=== PATIENT | female | born 1980 | race Caucasian/White ===

== ENCOUNTER → 2018-08-30 06:31 | Outpatient (CLI) | payer OTHER, SELFPAY ==
--- NOTE | 2018-08-30 | DI.MRI.S_ITS ---
PROCEDURE: MR CERVICAL SPINE WO CON INDICATIONS: PAIN IN LEFT ARM TECHNIQUE: Noncontrast sagittal T1 spin echo and T2 fast spin echo, sagittal STIR, foraminal oblique sagittal T2 fast spin echo, and axial gradient echo or T2 fast spin echo through the cervical spine. COMPARISON: None. FINDINGS: Image quality: Excellent. Alignment and Curvature: There is loss of normal cervical lordosis. There is moderate kyphosis at C5-C7. Bone Marrow: Marrow demonstrates normal overall signal. There is mild reactive signal within the endplates adjacent to the C5-C6 and C6-C7 intervertebral discs. Spinal Cord: Visualized spinal cord has normal size and signal. No cerebellar tonsillar herniation. Paraspinous Soft Tissues: No paravertebral masses. Prevertebral soft tissues are normal in thickness. C2-C3: Normal appearance. C3-C4: Mild disc desiccation. Mild bilateral facet hypertrophy. No significant canal, nor foraminal stenosis. C4-C5: Mild disc desiccation. Mild bilateral facet hypertrophy. Minimal canal stenosis. Mild foraminal stenosis bilaterally. C5-C6: Mild disc desiccation. Moderate diffuse disc bulge with superimposed left paracentral disc protrusion. Mild bilateral facet hypertrophy. Severe canal stenosis. Mild left cord flattening. Mild foraminal stenosis bilaterally. C6-C7: Moderate discoid loss and desiccation. Mild diffuse disc bulge/osteophyte with superimposed left posterolateral protrusion. Mild bilateral facet and uncovertebral hypertrophy. Moderate canal stenosis. Mild left cord flattening. Severe left and mild right foraminal stenosis. C7-T1: Mild bilateral facet hypertrophy. Mild foraminal stenosis bilaterally. No canal stenosis. IMPRESSION: 1. Lower cervical kyphosis. 2. Disc, facet, and uncovertebral disease at C5-C6 and C6-C7, causing cord flattening at those levels. 3. Severe left C6-C7 foraminal stenosis is present. Dictated by: Mauro Parnell M.D. on 08/30/2018 at 9:52 Approved by: Mauro Parnell M.D. on 08/30/2018 at 9:59
== END ==
PROVIDERS: PCP Student in an Organized Health Care Education/Training Program; Visit Provider Family Medicine
DX: M79.602 Pain in left arm (principal); M40.292 Other kyphosis, cervical region; M50.822 Other cervical disc disorders at C5-C6 level; M48.02 Spinal stenosis, cervical region
CPT/HCPCS: 72141

== ENCOUNTER 2018-11-09 16:31 | Emergency (ER) | payer OTHER, SELFPAY ==
[2018-11-09 16:33] VITALS: BP 108/72; PULSE 67; RESP 20; TEMP 37.1; O2SAT 100; BMI 23.7
--- NOTE | 2018-11-09 16:43 | ED_ITS ---
HPI - Neck Pain/Injury <DELMER Ramirez - Last Filed: 11/09/18 22:29> General Chief Complaint: Neck Pain/Injury Stated Complaint: PAIN AFTER SURGERY Time Seen by Provider: 11/09/18 16:42 Source: patient Mode of arrival: ambulatory Limitations: no limitations History of Present Illness HPI Narrative: 37-year-old healthy female that is a former smoker here for complaint of pain into her neck area since last night. She reports she got history of chronic neck pain secondary to stenosis and radiculopathy. She recently had a surgery by Orthopedics at [facility] to repair this. This surgery was on the 18 of October. She reports that last night she was playing with her dog and she moved her head backwards as she thought that the dog was going to swat at her she felt pain into her neck at that point. She reports the pain is to bilateral aspects of the neck. She denies any midline pain. She states she has some tingling and numbness to her bilateral neck. She is able to ambulate into the emergency room. She denies any loss of bladder or bowel control. She denies any direct trauma to the neck. Related Data Previous Rx's Medication Instructions Recorded cyclobenzaprine 10 mg PO TID PRN #20 tab 11/09/18 hydrocodone-acetaminophen [[place]] 1 tab PO Q6H PRN #10 tab 11/09/18 Allergies Allergy/AdvReac Type Severity Reaction Status Date / Time No Known Drug Allergies Allergy Verified 11/09/18 17:27 Review of Systems <DELMER Ramirez - Last Filed: 11/09/18 22:29> Constitutional Denies chills, Denies fever(s), Denies lethargy and Denies weakness Eyes Denies change in vision, Denies eye discharge, Denies irritation and Denies loss of vision ENT Ears, Nose, Mouth, and Throat: Denies change in voice, Denies neck pain and Denies sore throat Cardiovascular Denies chest pain, Denies irregular heart rhythm, Denies lightheadedness, Denies palpitations, Denies dyspnea, Denies dyspnea on exertion and Denies orthopnea Respiratory Denies cough, Denies dyspnea, Denies dyspnea on exertion and Denies wheezing Gastrointestinal Gastrointestinal: Denies abdominal pain, Denies change in bowel habits, Denies diarrhea, Denies nausea and Denies vomiting Genitourinary Denies hematuria, Denies flank pain, Denies urinary incontinence and Denies urinary urgency Musculoskeletal Denies neck pain Comments: Pain into bilateral neck paraspinals Integumentary/Breasts Denies pruritus, Denies erythema, Denies rash and Denies wounds Neurologic Denies confusion, Denies loss of vision and Denies weakness Psychiatric Denies anxiety, Denies confusion, Denies depression, Denies homicidal ideation and Denies suicidal ideation Endocrine Denies palpitations Hematologic/Lymphatic Denies easy bruising Allergic/Immunologic Denies wheezing Exam <DELMER Ramirez - Last Filed: 11/09/18 22:29> Initial Vital Signs Initial Vital Signs: Vital Signs Temperature 98.7 F 11/09/18 16:33 Pulse Rate 67 11/09/18 16:33 Respiratory Rate 20 11/09/18 16:33 Blood Pressure 108/72 11/09/18 16:33 Pulse Oximetry 100 11/09/18 16:33 Const General: cooperative and well developed Nutritional Appearance: well nourished Orientation: alert, awake, oriented x3 and not confused HENVT Mouth: oral mucosae normal and mucous membranes abnormal Eyes Conjunctivae: conjunctivae normal Sclera: sclerae normal Pupils: PERRL EOM: EOM intact bilaterally Neck Other: Neck and posterior C-spine without any signs of trauma. No midline tenderness. Tenderness on palpation to bilateral paraspinals of the neck. Distal sensation is intact to all 4 extremities. Range of motion is intact all 4 extremities. Resp Effort & Inspection: normal respiratory effort, able to speak in complete sentences, no respiratory distress and no use of accessory muscles Auscultation: clear to auscultation bilaterally, no rales, no rhonchi and no wheezes Cardio Rate: regular rate Rhythm: regular rhythm Heart Sounds: no click, no gallops, no murmurs and no rubs Pulses: normal peripheral pulses Skin General: no rashes or lesions noted, No jaundice and No petechiae Neuro General: alert, oriented x3, gait normal and no focal motor deficits Speech: speech normal <Eloisa Bello DO - Last Filed: 11/09/18 23:54> Initial Vital Signs Initial Vital Signs: Vital Signs Temperature 98.7 F 11/09/18 16:33 Pulse Rate 67 11/09/18 16:33 Respiratory Rate 20 11/09/18 16:33 Blood Pressure 108/72 11/09/18 16:33 Pulse Oximetry 100 11/09/18 16:33 Course <DELMER Ramirez - Last Filed: 11/09/18 22:29> Orders Ordered: ED Orders 11/09/18 17:07 CT cervical spine wo con Stat Discontinued Medications Hydrocodone Bitart/Acetaminophen ([place] 5/325) 1 tab PO NOW ONE Stop: 11/09/18 19:09 Last Admin: 11/09/18 19:22 Dose: 1 tab Vital Signs - 8 hr 11/09/18 16:33 11/09/18 17:54 11/09/18 19:45 Temperature 98.7 F Pulse Rate 67 68 60 Respiratory Rate 20 16 18 Blood Pressure 108/72 113/73 Blood Pressure [Left Arm] 106/65 Pulse Oximetry 100 100 98 <Eloisa Bello DO - Last Filed: 11/09/18 23:54> Orders Ordered: ED Orders 11/09/18 17:07 CT cervical spine wo con Stat Discontinued Medications Hydrocodone Bitart/Acetaminophen ([place] 5/325) 1 tab PO NOW ONE Stop: 11/09/18 19:09 Last Admin: 11/09/18 19:22 Dose: 1 tab Vital Signs - 8 hr 11/09/18 16:33 11/09/18 17:54 11/09/18 19:45 Temperature 98.7 F Pulse Rate 67 68 60 Respiratory Rate 20 16 18 Blood Pressure 108/72 113/73 Blood Pressure [Left Arm] 106/65 Pulse Oximetry 100 100 98 MDM - Neck Pain/Injury <DELMER Ramirez - Last Filed: 11/09/18 22:29> Imaging Data CT C-spine: Radiologist's impression: [address] [address] [address] Scan Report Signed Patient: CARLTON JON#: [id number] : 1980Acct:[id number] Age/Sex: 37 / FDate of Service: 11/09/18 Loc: ED Accession Number: [id number] Procedure: CT cervical spine wo con Ordering Provider: Antoni Mancilla PROCEDURE: CT CERVICAL SPINE WO CON INDICATIONS: Acute Bilateral neck pain, non traumatic TECHNIQUE: Noncontrast 3 mm thick sections acquired from the skull base to the T4 level. Sagittal and coronal reformats were then constructed. For radiation dose reduction, the following was used: automated exposure control, adjustment of mA and/or kV according to patient size. COMPARISON: [facility], MR, MR CERVICAL SPINE WO MCK[place], 08/30/2018, 6:54. FINDINGS: Image quality: Excellent. Bones: No fractures or dislocations. There is loss of normal cervical lordosis. There is grade 1 retrolisthesis of C5 on C6. There is minimal anterolisthesis of C3 on C4 and C4 on C5. Postsurgical changes are present with discectomy and anterior fusion at C5-C7Mild central canal stenosis at C5-C6 and C6-C7. . There is severe narrowing of the lateral recess at C6-C7 bilaterally, left greater than right. Visualized superior ribs are intact. Soft tissues: Prevertebral soft tissues are normal in thickness. No paravertebral hematomas. No apical pneumothoraces. There is an 8 mm low density nodule in the right thyroid lobe. IMPRESSION: 1. Degenerative and post surgical changes in cervical spine with discectomy and posterior fusion at C5-C7. 2. Mild central canal stenosis at C5-6 and C6-C7. 3. Severe narrowing of the lateral recess at C6-C7 bilaterally. 4. An 8 mm low density nodule in the right thyroid lobe. Thyroid ultrasound followup suggested. Dictated by: Sam Woods M.D. on 11/09/2018 at 17:49 Approved by: Sam Woods M.D. on 11/09/2018 at 17:57 MDM Narrative Medical decision making narrative: CT scan of C-spine was obtained and was negative for any acute fractures or signs of trauma. CT scan did show that there was a nodule to the thyroid and will have a follow up with primary care provider. For further evaluation chest is ultrasound to ensure is stable. Discussed case with [facility]surgery as [facility] where surgery was completed and they request that they follow up with them next week. She is prescribed cyclobenzaprine to help with muscle strain [id number] ibuprofen as needed for any discomfort. Will treat for acute strain. Small amount of [place] is prescribed for breakthrough pain not be used in conjunction with a muscle relaxer. Rest area. For any worsening symptoms return emergency room for. Discharge Plan Departure Patient Disposition: Home Clinical Impression: Acute strain of neck muscle Discharge Date/Time: 11/09/18 19:45 Interventions: ED Discharge Assessment Last Done: 11/09/18 19:45 Instructions: Chronic Neck Pain Activity Restrictions/Additional Instructions: CT of the neck was obtained was negative for any signs of fractures or problems with recent surgery. CT does show incidental finding of a thyroid nodule. Follow up with primary care provider for supervision further studies such as ultrasound of the nodule to ensure is stable. Follow up with surgery as [facility] next week for re-evaluation. Will treat for neck strain at this time with muscle relaxer cyclobenzaprine along with [id number] ibuprofen use as directed. No driving while on muscle relaxers a can make you drowsy. Small amount of [place] is prescribed for breakthrough pain not covered by the ibuprofen do not use in conjunction with the muscle relaxant. Return emergency room for any worsening symptoms. Prescriptions: New cyclobenzaprine 10 mg tablet 10 mg PO TID PRN (Reason: muscle spasm) Qty: 20 RF: 0 hydrocodone-acetaminophen [[place]] 5-325 mg tablet 1 tab PO Q6H PRN (Reason: pain) Qty: 10 RF: 0 Referrals: Juan Antonio Corral [Primary Care Provider] - <Eloisa Bello DO - Last Filed: 11/09/18 23:54> Cosign ED Attending Cosignature Attestation: I was immediately available in the department for consultation. This documentation has been reviewed and I agree with assessment and plan. Supervised by Eloisa Blelo DO
--- NOTE | 2018-11-09 17:07 | DI.CT.S_ITS ---
PROCEDURE: CT CERVICAL SPINE WO CON INDICATIONS: Acute Bilateral neck pain, non traumatic TECHNIQUE: Noncontrast 3 mm thick sections acquired from the skull base to the T4 level. Sagittal and coronal reformats were then constructed. For radiation dose reduction, the following was used: automated exposure control, adjustment of mA and/or kV according to patient size. COMPARISON: [facility], MR, MR CERVICAL SPINE WO CON, 08/30/2018, 6:54. FINDINGS: Image quality: Excellent. Bones: No fractures or dislocations. There is loss of normal cervical lordosis. There is grade 1 retrolisthesis of C5 on C6. There is minimal anterolisthesis of C3 on C4 and C4 on C5. Postsurgical changes are present with discectomy and anterior fusion at C5-C7Mild central canal stenosis at C5-C6 and C6-C7. . There is severe narrowing of the lateral recess at C6-C7 bilaterally, left greater than right. Visualized superior ribs are intact. Soft tissues: Prevertebral soft tissues are normal in thickness. No paravertebral hematomas. No apical pneumothoraces. There is an 8 mm low density nodule in the right thyroid lobe. IMPRESSION: 1. Degenerative and post surgical changes in cervical spine with discectomy and posterior fusion at C5-C7. 2. Mild central canal stenosis at C5-6 and C6-C7. 3. Severe narrowing of the lateral recess at C6-C7 bilaterally. 4. An 8 mm low density nodule in the right thyroid lobe. Thyroid ultrasound followup suggested. Dictated by: Sam Woods M.D. on 11/09/2018 at 17:49 Approved by: Sam Woods M.D. on 11/09/2018 at 17:57
[2018-11-09 17:54] VITALS: BP 106/65; PULSE 68; RESP 16; O2SAT 100
[2018-11-09] MEDS: HYDROCODONE/ACET 5/325 TABLET 1 TAB PO (19:22)
[2018-11-09 19:45] VITALS: BP 113/73; PULSE 60; RESP 18; O2SAT 98
== END 2018-11-09 19:45 | disposition home or self-care (01) ==
PROVIDERS: Emergency Provider Nurse Practitioner Family; PCP Student in an Organized Health Care Education/Training Program
DX: S16.1XXA Strain of muscle, fascia and tendon at neck level, initial encounter (principal)
CPT/HCPCS: 72125; 99282; 99283

== ENCOUNTER → 2020-02-24 07:07 | Outpatient (CLI) | payer OTHER, SELFPAY ==
--- NOTE | 2020-02-24 | DI.US.S_ITS ---
LIMITED ULTRASOUND OF LEFT BREAST: 02/24/2020 CLINICAL: Lateral aspect 'rippling' per pt. No prior exams were available for comparison. Color flow and real-time ultrasound of the left breast 3-6 o'clock region were performed. Mathews scale images of the real-time examination were reviewed. No sonographic abnormality in the lower outer quadrant of the left breast. IMPRESSION: NEGATIVE There is no sonographic evidence of malignancy. Return to annual mammogram screening schedule is recommended. If symptoms persist or worsen, recommend mammogram in this patient who is less than 40 years old. Exam findings were conveyed to the patient by the Process Architect. This exam was interpreted at Station ID: [id number]. Electronically Signed By: Robert Dailey M.D. [facility] [place]/:02/24/2020 09:11:24 letter sent: Normal Exam Ultrasound BI-RADS: 1 Negative
--- NOTE | 2020-02-24 | DI.US.S_ITS ---
LIMITED ULTRASOUND OF RIGHT BREAST: 02/24/2020 CLINICAL: Lateral aspect 'rippling' with pain per pt. No prior exams were available for comparison. Real-time ultrasound of the right breast 6-10 o'clock region was performed. Mathews scale images of the real-time examination were reviewed. No sonographic abnormality in the right lower outer and upper outer breast. IMPRESSION: NEGATIVE There is no sonographic evidence of malignancy. Return to annual mammogram screening schedule is recommended. If symptoms persist or worsen, recommend mammogram in this patient who is less than 40 years old. Exam findings were conveyed to the patient by the Timber Treating Tank Operator. This exam was interpreted at Station ID: [id number]. Electronically Signed By: Robert Dailey M.D. [facility]/:02/24/2020 09:15:13 letter sent: Normal Exam Ultrasound BI-RADS: 1 Negative
== END ==
PROVIDERS: PCP Student in an Organized Health Care Education/Training Program
DX: N64.4 Mastodynia (principal)
CPT/HCPCS: 76642

== ENCOUNTER 2020-09-01 18:44 | Outpatient (CLI) | payer OTHER, SELFPAY ==
[2020-09-01 19:08] LABS: Appearance Urine UA CLEAR; Bilirubin Urine UA NEGATIVE (NEGATIVE); Color Urine UA YELLOW; Glucose Urine UA NEGATIVE (Negative); Ketones Urine UA NEGATIVE (NEGATIVE); Leukocyte Esterase Urine UA TRACE (NEGATIVE); Nitrite Urine UA NEGATIVE (Negative); Occult Blood Urine UA TRACE-INTACT (Negative); Protein Urine UA NEGATIVE (Negative); Specific Gravity Urine UA <=1.005 (1.000-1.035); Urobilinogen Urine UA 0.2 E.U./dL (0.2)
[2020-09-01 19:10] LABS: pH Urine UA 6.5 (4.5-8.0)
[2020-09-01 19:25] LABS: RBC Urine 0-1/HPF (0-5/HPF); Squamous Epithelial Cell Urine 1-5 /HPF (0-5/HPF); WBC Urine 1-5/HPF (0-5/HPF)
[2020-09-01 19:26] LABS: Bacteria Urine Moderate (10-30); Culture Indicated Urine Specimen Cultured
[2020-09-01 19:48] LABS: Add Manual Diff / Slide Review NO; Basophils Absolute Auto 0 /uL (0-100); Basophils Percent Auto 0.4 % (0-2); Eosinophils Absolute Auto 100 /uL (0-450); Eosinophils Percent Auto 1.5 % (2-4); Hematocrit 25.7 % (36-46); Hemoglobin 8.6 g/dL (12.0-16.0); Lymphocytes Absolute Auto 2100 /uL (1100-4500); Lymphocytes Percent Auto 29.6 % (25-40); Mean Corpuscular HGB Conc 33.4 % (30-36); Mean Corpuscular Hemoglobin 31.2 PG (26-34); Mean Corpuscular Volume 93.2 fL (80-100); Monocytes Absolute Auto 700 /uL (0-900); Monocytes Percent Auto 9.5 % (3-14); Neutrophils Absolute Auto 4300 /uL (1500-7000); Platelet Count 189 X10^3/uL (150-400); Red Blood Cell Count 2.76 X10^6/uL (4.0-5.2); Red Cell Distribution Width 13.6 % (11.6-14.8); White Blood Cell Count 7.2 X10^3/uL (4.5-11.0)
[2020-09-01 20:06] LABS: Aspartate Aminotransferase 21 IU/L (14-36); Blood Urea Nitrogen 8 mg/dL (7-17); Estimated Glomerular Filt Rate > 60.0 mL/min (>60); Uric Acid 3.3 mg/dL (2.5-6.2)
== END 2020-09-01 20:25 | disposition home or self-care (01) ==
LOC: OB 09-02 08:30
PROVIDERS: PCP Student in an Organized Health Care Education/Training Program; Referring Provider Obstetrics & Gynecology; Visit Provider Obstetrics & Gynecology
DX: O16.3 Unspecified maternal hypertension, third trimester (principal); O09.523 Supervision of elderly multigravida, third trimester; Z3A.34 34 weeks gestation of pregnancy
CPT/HCPCS: 36415; 59025; 59050; 81001; 84450; 84550; 85025; 87077; 87086; G0378; G0379

== ENCOUNTER 2020-09-03 13:19 | Outpatient (CLI) | payer OTHER, SELFPAY ==
--- NOTE | 2020-09-03 13:41 | PM.OBTRLD ---
Visit Information Visit Information Date of evaluation: 09/03/20 Primary OB Provider: Farida Leblanc On-call OB Provider: Estella Graves Reason for Evaluation: Yes non-stress test non-stress test reason: other (Sent from clinic by Dr. 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 Blood type, Rh negative Cervical disc disorder with radiculopathy Chronic neck pain Depression Dysplasia of cervix H/O being hospitalized H/O transfusion of whole blood (~2011) LGSIL on Pap smear of cervix Lump of right breast Morbid obesity Myopia PIH ( induced hypertension) hemorrhage (~10/2011) Pre-eclampsia (~2010) PTSD (post-traumatic stress disorder) Superficial keratitis (spontaneous vaginal delivery) (~11/08/11) (spontaneous vaginal delivery) (~03/27/13) Thrombosed external hemorrhoids Surgical History H/O inguinal hernia repair (~1989) H/O spinal fusion (~10/2017) History of tonsillectomy and adenoidectomy (~1989) Hx of breast implants, bilateral (~2013) Hx of LASIK (~2009) S/P LEEP (loop electrosurgical excision procedure) (~2009) S/P wisdom tooth extraction (~1996) Family History Mother Ovarian cyst Depression Hypertension Father Family estrangement Grandmother Ovarian cyst Vertigo Anemia Grandfather Lung cancer Cancer Grandmother Family estrangement Grandfather Family estrangement Sister Depression Social History marital status: number of children: 2 household members: spouse and children pets and animals: Yes (X 2 dogs) education level: college (BA in Business) occupational status: employed ([employer] X 18 years ) current occupational exposures/hazards: No shashi/hinduism: Evangelical special shashi needs: No Smoking Status: Former smoker Tobacco: How many years used: 10 quit status: quit date established (08/15/2011) second hand exposure: No alcohol intake: former (pre- : occasional use) substance use type: does not use Evaluation Evaluation Baseline heart rate: 120 Variability: Moderate (11-25) monitor accelerations: Present monitor decelerations: Absent Category of Tracing: Reactive Diagnosis, Plan/Disposition Final Diagnosis (1) 34 weeks gestation of : Status: Acute Plan/Disposition Plan: 39-year-old at 34 weeks gestation[address] care [address] Leblanc. NST reactive today. Follow-up in clinic as scheduled. OB Disposition: home
== END 2020-09-03 13:45 | disposition home or self-care (01) ==
LOC: LABOR 13:36 → OB 09-04 10:11
PROVIDERS: PCP Student in an Organized Health Care Education/Training Program; Referring Provider Obstetrics & Gynecology; Visit Provider Obstetrics & Gynecology
DX: O16.3 Unspecified maternal hypertension, third trimester (principal); O09.523 Supervision of elderly multigravida, third trimester; M54.89 Other dorsalgia; Z3A.34 34 weeks gestation of pregnancy
CPT/HCPCS: 59025; G0378; G0379

== ENCOUNTER 2020-09-08 16:18 | Outpatient (CLI) | payer OTHER, SELFPAY ==
--- NOTE | 2020-09-08 16:56 | P.TNLD_ITS ---
Visit Information Visit Information Date of evaluation: 09/08/20 Primary OB Provider: Farida Leblanc Reason for Evaluation: Yes non-stress test Comments/Additional reasons for admission: This patient is a 39-year-old para 2 at 35 weeks gestation with a history of preeclampsia and abruption in her prior pregnancies and heavily calcified placenta, presenting for NST as part of weekly testing. Patient reports feeling well with no complaints, had 8/8 BPP in the office. 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 Blood type, Rh negative Cervical disc disorder with radiculopathy Chronic neck pain Depression Dysplasia of cervix H/O being hospitalized H/O transfusion of whole blood (~2011) LGSIL on Pap smear of cervix Lump of right breast Morbid obesity Myopia PIH ( induced hypertension) hemorrhage (~10/2011) Pre-eclampsia (~2010) PTSD (post-traumatic stress disorder) Superficial keratitis (spontaneous vaginal delivery) (~11/08/11) (spontaneous vaginal delivery) (~03/27/13) Thrombosed external hemorrhoids Surgical History H/O inguinal hernia repair (~1989) H/O spinal fusion (~10/2017) History of tonsillectomy and adenoidectomy (~1989) Hx of breast implants, bilateral (~2013) Hx of LASIK (~2009) S/P LEEP (loop electrosurgical excision procedure) (~2009) S/P wisdom tooth extraction (~1996) Family History Mother Ovarian cyst Depression Hypertension Father Family estrangement Grandmother Ovarian cyst Vertigo Anemia Grandfather Lung cancer Cancer Grandmother Family estrangement Grandfather Family estrangement Sister Depression Social History marital status: number of children: 2 household members: spouse and children pets and animals: Yes (X 2 dogs) education level: college (BA in Business) occupational status: employed ([employer] X 18 years ) current occupational exposures/hazards: No shashi/latter day: Confucianism special shashi needs: No Smoking Status: Former smoker Tobacco: How many years used: 10 quit status: quit date established (08/15/2011) second hand exposure: No alcohol intake: former (pre- : occasional use) substance use type: does not use Evaluation Evaluation Baseline heart rate: 130 Variability: Moderate (11-25) monitor accelerations: Present monitor decelerations: Absent Category of Tracing: Reactive Diagnosis, Plan/Disposition Plan/Disposition Plan: Home with scheduled follow-up and precautions. OB Disposition: home
== END 2020-09-08 17:00 | disposition home or self-care (01) ==
LOC: LABOR 16:21 → OB 09-11 12:29
PROVIDERS: PCP Student in an Organized Health Care Education/Training Program; Referring Provider Obstetrics & Gynecology; Visit Provider Obstetrics & Gynecology
DX: O13.3 Gestational [pregnancy-induced] hypertension without significant proteinuria, third trimester (principal); O09.523 Supervision of elderly multigravida, third trimester; O43.893 Other placental disorders, third trimester; Z3A.35 35 weeks gestation of pregnancy
CPT/HCPCS: 59025; G0378; G0379

== ENCOUNTER 2020-09-15 13:56 | Outpatient (CLI) | payer OTHER, SELFPAY ==
--- NOTE | 2020-09-15 18:06 | PM.OBTRLD ---
Visit Information Visit Information Date of evaluation: 09/15/20 Primary OB Provider: Farida Leblanc Reason for Evaluation: Yes non-stress test Comments/Additional reasons for admission: This patient presents for planned NST due to a history of calcified placenta, with preeclampsia and placental abruption in her prior pregnancies. 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 Blood type, Rh negative Cervical disc disorder with radiculopathy Chronic neck pain Depression Dysplasia of cervix H/O being hospitalized H/O transfusion of whole blood (~2011) LGSIL on Pap smear of cervix Lump of right breast Morbid obesity Myopia PIH ( induced hypertension) hemorrhage (~10/2011) Pre-eclampsia (~2010) PTSD (post-traumatic stress disorder) Superficial keratitis (spontaneous vaginal delivery) (~11/08/11) (spontaneous vaginal delivery) (~03/27/13) Thrombosed external hemorrhoids Surgical History H/O inguinal hernia repair (~1989) H/O spinal fusion (~10/2017) History of tonsillectomy and adenoidectomy (~1989) Hx of breast implants, bilateral (~2013) Hx of LASIK (~2009) S/P LEEP (loop electrosurgical excision procedure) (~2009) S/P wisdom tooth extraction (~1996) Family History Mother Ovarian cyst Depression Hypertension Father Family estrangement Grandmother Ovarian cyst Vertigo Anemia Grandfather Lung cancer Cancer Grandmother Family estrangement Grandfather Family estrangement Sister Depression Social History marital status: number of children: 2 household members: spouse and children pets and animals: Yes (X 2 dogs) education level: college (BA in Business) occupational status: employed ([email or web address] X 18 years ) current occupational exposures/hazards: No shashi/mu-ism: Gnosticist special shashi needs: No Smoking Status: Former smoker Tobacco: How many years used: 10 quit status: quit date established (08/15/2011) second hand exposure: No alcohol intake: former (pre- : occasional use) substance use type: does not use Evaluation Evaluation Baseline heart rate: 135 Variability: Moderate (11-25) monitor accelerations: Present monitor decelerations: Absent Category of Tracing: Reactive Diagnosis, Plan/Disposition Plan/Disposition Plan: Home with routine precautions. OB Disposition: home
== END 2020-09-15 14:35 | disposition home or self-care (01) ==
LOC: LABOR 14:31 → OB 09-16 08:32
PROVIDERS: PCP Student in an Organized Health Care Education/Training Program; Referring Provider Obstetrics & Gynecology; Visit Provider Obstetrics & Gynecology
DX: O13.3 Gestational [pregnancy-induced] hypertension without significant proteinuria, third trimester (principal); O09.523 Supervision of elderly multigravida, third trimester; Z3A.36 36 weeks gestation of pregnancy
CPT/HCPCS: 59025; 87653; G0378; G0379

== ENCOUNTER → 2020-09-15 14:01 | Outpatient (CLI) | payer OTHER, SELFPAY ==
[2020-09-16 08:23] LABS: Strep Grp B PCR NEG for Grp B Strep
== END ==
PROVIDERS: PCP Student in an Organized Health Care Education/Training Program; Visit Provider Obstetrics & Gynecology
DX: Z34.83 Encounter for supervision of other normal pregnancy, third trimester (principal); Z3A.36 36 weeks gestation of pregnancy
CPT/HCPCS: 87653

== ENCOUNTER 2020-09-24 11:56 | Outpatient (CLI) | payer OTHER, SELFPAY ==
--- NOTE | 2020-09-24 12:35 | P.TNLD_ITS ---
Visit Information Visit Information Date of evaluation: 09/24/20 Primary OB Provider: Farida Leblanc Reason for Evaluation: Yes non-stress test Comments/Additional reasons for admission: Patient sent for scheduled NST for calcified placenta and hx preeclampsia, after 05/23 BPP in the office. 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 Blood type, Rh negative Cervical disc disorder with radiculopathy Chronic neck pain Depression Dysplasia of cervix H/O being hospitalized H/O transfusion of whole blood (~2011) LGSIL on Pap smear of cervix Lump of right breast Morbid obesity Myopia PIH ( induced hypertension) hemorrhage (~10/2011) Pre-eclampsia (~2010) PTSD (post-traumatic stress disorder) Superficial keratitis (spontaneous vaginal delivery) (~11/08/11) (spontaneous vaginal delivery) (~03/27/13) Thrombosed external hemorrhoids Surgical History H/O inguinal hernia repair (~1989) H/O spinal fusion (~10/2017) History of tonsillectomy and adenoidectomy (~1989) Hx of breast implants, bilateral (~2013) Hx of LASIK (~2009) S/P LEEP (loop electrosurgical excision procedure) (~2009) S/P wisdom tooth extraction (~1996) Family History Mother Ovarian cyst Depression Hypertension Father Family estrangement Grandmother Ovarian cyst Vertigo Anemia Grandfather Lung cancer Cancer Grandmother Family estrangement Grandfather Family estrangement Sister Depression Social History marital status: number of children: 2 household members: spouse and children pets and animals: Yes (X 2 dogs) education level: college (BA in Business) occupational status: employed ([employer] X 18 years ) current occupational exposures/hazards: No shashi/jehovah's witness: Taoist special shashi needs: No Smoking Status: Former smoker Tobacco: How many years used: 10 quit status: quit date established (08/15/2011) second hand exposure: No alcohol intake: former (pre- : occasional use) substance use type: does not use Review of Systems Constitutional Constitutional: Reports system reviewed and no additional complaints, except as documented Exam Const General: cooperative, healthy appearing, comfortable and well groomed Evaluation Evaluation Baseline heart rate: 130 Variability: Moderate (11-25) monitor accelerations: Present monitor decelerations: Absent Contraction Frequency (minutes): 5 Category of Tracing: Reactive Diagnosis, Plan/Disposition Plan/Disposition Plan: Home with follow up NST in 3-4 days. OB Disposition: home
== END 2020-09-24 12:40 | disposition home or self-care (01) ==
LOC: LABOR 12:23 → OB 09-28 15:40
PROVIDERS: PCP Student in an Organized Health Care Education/Training Program; Referring Provider Obstetrics & Gynecology; Visit Provider Obstetrics & Gynecology
DX: O13.3 Gestational [pregnancy-induced] hypertension without significant proteinuria, third trimester (principal); O09.523 Supervision of elderly multigravida, third trimester; Z3A.37 37 weeks gestation of pregnancy
CPT/HCPCS: 59025; G0378; G0379

== ENCOUNTER 2020-09-27 12:22 | Outpatient (CLI) | payer OTHER, SELFPAY ==
--- NOTE | 2020-09-27 12:51 | PM.OBTRLD ---
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 Blood type, Rh negative Cervical disc disorder with radiculopathy Chronic neck pain Depression Dysplasia of cervix H/O being hospitalized H/O transfusion of whole blood (~2011) LGSIL on Pap smear of cervix Lump of right breast Morbid obesity Myopia PIH ( induced hypertension) hemorrhage (~10/2011) Pre-eclampsia (~2010) PTSD (post-traumatic stress disorder) Superficial keratitis (spontaneous vaginal delivery) (~11/08/11) (spontaneous vaginal delivery) (~03/27/13) Thrombosed external hemorrhoids Surgical History H/O inguinal hernia repair (~1989) H/O spinal fusion (~10/2017) History of tonsillectomy and adenoidectomy (~1989) Hx of breast implants, bilateral (~2013) Hx of LASIK (~2009) S/P LEEP (loop electrosurgical excision procedure) (~2009) S/P wisdom tooth extraction (~1996) Family History Mother Ovarian cyst Depression Hypertension Father Family estrangement Grandmother Ovarian cyst Vertigo Anemia Grandfather Lung cancer Cancer Grandmother Family estrangement Grandfather Family estrangement Sister Depression Social History marital status: number of children: 2 household members: spouse and children pets and animals: Yes (X 2 dogs) education level: college (BA in Business) occupational status: employed ([employer] X 18 years ) current occupational exposures/hazards: No shashi/latter day: Jewish special shashi needs: No Smoking Status: Former smoker Tobacco: How many years used: 10 quit status: quit date established (08/15/2011) second hand exposure: No alcohol intake: former (pre- : occasional use) substance use type: does not use Evaluation Evaluation Baseline heart rate: 130 Variability: Moderate (11-25) monitor accelerations: Present monitor decelerations: Absent Category of Tracing: Reactive Diagnosis, Plan/Disposition Final Diagnosis (1) 38 weeks gestation of : Status: Acute Plan/Disposition Plan: 39 year old at 37+5 here for NST due to h/o pre-eclampsia and calcified placenta. NST reactive, BP normal. Follow up with Dr. Leblanc as scheduled. OB Disposition: home
== END 2020-09-27 12:55 | disposition home or self-care (01) ==
LOC: OB 09-28 15:41
PROVIDERS: PCP Student in an Organized Health Care Education/Training Program; Referring Provider Family Medicine; Visit Provider Family Medicine
DX: O13.3 Gestational [pregnancy-induced] hypertension without significant proteinuria, third trimester (principal); O09.523 Supervision of elderly multigravida, third trimester; Z3A.37 37 weeks gestation of pregnancy; Z87.59 Personal history of other complications of pregnancy, childbirth and the puerperium
CPT/HCPCS: 59025; G0378; G0379

== ENCOUNTER 2020-10-01 15:28 | Inpatient (IN) | payer OTHER, SELFPAY ==
[2020-10-01 15:38] VITALS: BP 117/68
[2020-10-01 16:10] LABS: Add Manual Diff / Slide Review NO; Basophils Absolute Auto 0 /uL (0-100); Basophils Percent Auto 0.3 % (0-2); Eosinophils Absolute Auto 0 /uL (0-450); Eosinophils Percent Auto 0.6 % (2-4); Hemoglobin 9.3 g/dL (12.0-16.0); Lymphocytes Absolute Auto 2200 /uL (1100-4500); Lymphocytes Percent Auto 26.8 % (25-40); Mean Corpuscular HGB Conc 33.3 % (30-36); Mean Corpuscular Hemoglobin 31.3 PG (26-34); Monocytes Absolute Auto 600 /uL (0-900); Monocytes Percent Auto 7.7 % (3-14); Neutrophils Absolute Auto 5200 /uL (1500-7000); Neutrophils Percent Auto 64.6 % (50-75); Platelet Count 173 X10^3/uL (150-400); Red Blood Cell Count 2.98 X10^6/uL (4.0-5.2); Red Cell Distribution Width 14.4 % (11.6-14.8); White Blood Cell Count 8.1 X10^3/uL (4.5-11.0)
[2020-10-01 16:23] LABS: Aspartate Aminotransferase 22 IU/L (14-36); BUN Creatinine Ratio 18.4 (6-22); Blood Urea Nitrogen 9 mg/dL (7-17); Estimated Glomerular Filt Rate > 60.0 mL/min (>60); Uric Acid 3.3 mg/dL (2.5-6.2)
[2020-10-01 16:41] LABS: Creatinine Urine Random 32.7 mg/dL; Protein (Total) Urine Random 13 mg/dL (0-12); Protein Creatinine Ratio Urine 0.39 GRAM/24H
--- NOTE | 2020-10-01 17:22 | P.HPOB_ITS ---
OB HPI Date/Time Date of admission: 10/01/20 Date Patient Seen: 10/01/20 Time Patient Seen: 17:22 History of Present Condition Chief complaint: NST : 3 Para: 2 Estimated Date of Delivery: 10/13/20 Estimated Gestational Age (weeks): 38 Narrative: Carine Clements is a 39 year old at 38+2 admitted with preecl ampsia without severe features. The patient has a history of preeclampsia without severe features in her 1st , and intrapartum placental abruption with subsequent rapid vaginal delivery in her 2nd . The patient reported today in clinic that she has had increased fatigue and malaise, hand and feet swelling, and occasional visual changes, though no headaches or sustained symptoms. Denies obstetrical complaints, with rare contractions and good movement. Biophysical profile in clinic was 8/8 with a normal MORRIS, but on presentation to the Center, she had an elevated urine protein/creatinine ratio of 0.39 and intermittently elevated blood pressures. The patient had a late transfer of care from the [facility] but has had an otherwise uncomplicated , though she has been in testing for heavily calcified placenta. Also of note, patient's 1st daughter was found to be partial trisomy 18,? Mosaic. Cell free DNA was normal in this , patient seen by [facility] and found to be low risk for aneuploidy in this . EFW is 7 lb 8 oz. patient has a history of forceps assisted vaginal delivery with both pregnancies, ?due to distress. She has no contributory medical, surgical, family, or social history, though she is of advanced maternal age. Indications Indication for induction OB: medical complication (Preeclampsia without severe features) History of Present care: good care Dating criteria: LMP confirmed by 1st trimester US Ultrasounds: normal 1st trimester US and normal mid trimester US Abnormal ultrasound findings: Heavily calcified placenta noted on transfer from [facility]. Obstetrical complications: preeclampsia Medical complications: none Preadmission Labs Blood type: 0 (-) negative -: Antibody screen: negative, GBS status: negative and RPR/VDLR: negative -: Chlamydia screen: not detected and Gonorrhea screen: not detected -: Rubella: immune and Varicella: immune Cell-free DNA: Within normal limits Urine: Within normal limits Narrative: Glucose Baseline =75; Gluc 5Ta=779; Gluc 5Kw=319; Gluc 4Sw=166 on 07/07/2020. Prior (ies) History: G1: 11/08/11, 37 weeks, 7#10, F, FAVD, retained placenta leading to PPH, preeclampsia without severe features G2: 03/27/13, 38weeks, 7#14, FAVD, F, placental abruption Evaluation Evaluation Baseline heart rate: 130 Variability: Moderate (11-25) monitor accelerations: Present monitor decelerations: Absent Uterine Contraction Intensity: Mild Category of Tracing: Reactive Status: Category l Cervical dilation (cm): 1 Cervical effacement (%): 50 station: -2 Laboratory results: Laboratory Tests 10/01/20 10/01/20 10/01/20 15:59 15:59 16:07 WBC 8.1 RBC 2.98 L Hgb 9.3 L Hct 28.0 L MCV 94.0 MCH 31.3 MCHC 33.3 RDW 14.4 Plt Count 173 Neut % (Auto) 64.6 Lymph % (Auto) 26.8 [place] % (Auto) 7.7 Eos % (Auto) 0.6 L Baso % (Auto) 0.3 Neut # (Auto) 5200 Lymph # (Auto) 2200 [place] # (Auto) 600 Eos # (Auto) 0 Baso # (Auto) 0 BUN 9 Creatinine 0.49 L Estimated GFR > 60.0 BUN/Creatinine Ratio 18.4 Uric Acid 3.3 AST 22 U Random Total Protein 13 H Urine Creatinine 32.7 Protein/Creatinin Ratio 0.39 PFSH Medical History AMA (advanced maternal age) multigravida 35+ Astigmatism 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 Blood type, Rh negative Cervical disc disorder with radiculopathy Chronic neck pain Depression Dysplasia of cervix H/O being hospitalized H/O transfusion of whole blood (~2011) LGSIL on Pap smear of cervix Lump of right breast Morbid obesity Myopia PIH ( induced hypertension) hemorrhage (~10/2011) Pre-eclampsia (~2010) PTSD (post-traumatic stress disorder) Superficial keratitis (spontaneous vaginal delivery) (~11/08/11) (spontaneous vaginal delivery) (~03/27/13) Thrombosed external hemorrhoids Surgical History H/O inguinal hernia repair (~1989) H/O spinal fusion (~10/2017) History of tonsillectomy and adenoidectomy (~1989) Hx of breast implants, bilateral (~2013) Hx of LASIK (~2009) S/P LEEP (loop electrosurgical excision procedure) (~2009) S/P wisdom tooth extraction (~1996) Family History Mother Ovarian cyst Depression Hypertension Father Family estrangement Grandmother Ovarian cyst Vertigo Anemia Grandfather Lung cancer Cancer Grandmother Family estrangement Grandfather Family estrangement Sister Depression Social History marital status: number of children: 2 household members: spouse and children pets and animals: Yes (X 2 dogs) education level: college (BA in Business) occupational status: employed ([employer] X 18 years ) current occupational exposures/hazards: No shashi/mormonism: Jew special shashi needs: No Smoking Status: Former smoker Tobacco: How many years used: 10 quit status: quit date established (08/15/2011) second hand exposure: No alcohol intake: former (pre- : occasional use) substance use type: does not use Meds Home Medications and Allergies Home Medications Medication Instructions Recorded Confirmed Type aspirin 81 mg chewable tablet 81 mg PO DAILY 08/18/20 08/20/20 History prenat.vits,cassy,cch-rrok-kkfaw 1 tab PO DAILY 08/18/20 08/20/20 History cephalexin 500 mg capsule 500 mg PO BID #14 cap 09/03/20 09/03/20 Rx ferrous sulfate 325 mg (65 mg 325 mg PO DAILY #30 tab 09/15/20 09/15/20 Rx iron) tablet Allergies Allergy/AdvReac Type Severity Reaction Status Date / Time No Known Drug Allergies Allergy Verified 08/20/20 15:11 Review of Systems Constitutional Constitutional: Reports system reviewed and no additional complaints, except as documented Cardiovascular Cardiovascular: Reports system reviewed and no additional complaints, except as documented Respiratory Respiratory: Reports system reviewed and no additional complaints, except as documented Gastrointestinal Gastrointestinal: Reports system reviewed and no additional complaints, except as documented Genitourinary Genitourinary: Reports system reviewed and no additional complaints, except as documented Musculoskeletal Musculoskeletal: Reports as per HPI Neurologic Neurologic: Reports as per HPI Exam Vital Signs (past 8 hours): 119-152/78-92 Narrative Exam Narrative: Resting in bed, fatigued-appearing Const General: cooperative and comfortable Resp Effort & Inspection: normal respiratory effort Auscultation: clear to auscultation bilaterally Cardio Rate: regular rate Rhythm: regular rhythm GI Palpation: soft and No tender Extrem Other: 2+ edema in bilateral lower extremities, trace and upper extremities. 3+ patellar reflexes bilaterally. Objective Labs Result Diagrams: 10/01/20 15:59 10/01/20 15:59 Labs: Laboratory Results - last 24 hr 10/01/20 10/01/20 10/01/20 15:59 15:59 16:07 WBC 8.1 RBC 2.98 L Hgb 9.3 L Hct 28.0 L MCV 94.0 MCH 31.3 MCHC 33.3 RDW 14.4 Plt Count 173 Neut % (Auto) 64.6 Lymph % (Auto) 26.8 [place] % (Auto) 7.7 Eos % (Auto) 0.6 L Baso % (Auto) 0.3 Neut # (Auto) 5200 Lymph # (Auto) 2200 [place] # (Auto) 600 Eos # (Auto) 0 Baso # (Auto) 0 BUN 9 Creatinine 0.49 L Estimated GFR > 60.0 BUN/Creatinine Ratio 18.4 Uric Acid 3.3 AST 22 U Random Total Protein 13 H Urine Creatinine 32.7 Protein/Creatinin Ratio 0.39 Assessment and Plan Assessment and Plan Assessment and Plan narrative: This patient is a 39-year-old para 2 with a history of preeclampsia and placental abruption in prior pregnancies, now admitted at 38 weeks 2 days with preeclampsia without severe features. We discussed that at this point, the recommendation would be for induction of labor. The patient require cervical ripening and will be admitted overnight for Cervidil, anticipating Pitocin in the morning. Discussed risks and benefits, discussed risks of placental calcification leading to intolerance of la bor, discussed risk of emergency . Patient and partner vocalized understanding and agree with the plan for induction. - cEFM, toco - cervidil overnight - q1 hr BP checks, notify MD if over 160/110 - Ambulation ad tita
[2020-10-01 18:54] LABS: COVID19 -Nasal RAPID Negative (Negative)
[2020-10-01] MEDS: ZOLPIDEM 5 MG TABLET PO (21:10)
[2020-10-01] MEDS: DINOPROSTONE VAG (CERVIDIL) 10 MG VAG (21:10)
[2020-10-02] MEDS: LACTATED RINGERS 1,000 ML 100 ML IV ×2 (01:20→14:04)
--- NOTE | 2020-10-02 07:48 | PM.OBPNLAB ---
Date/Time Date Patient Seen: 10/02/20 Time Patient Seen: 07:30 Pain Control Pain control: tolerating well Pelvic Exam Dilation (cm): 3 Effacement (%): 80 station: -3 Amniotic membrane status: Intact Comments: 108-125/59-72 Contractions Contraction pattern: Irregular Contraction intensity: Mild Status status: Category l Heart Rate Baseline: 130 Monitor Accelerations: Present Monitor Decelerations: Absent Monitor Variability: Moderate Assessment and Plan Assessment: induction ongoing Plan: continuous present management Comments: Patient made change to favorable cervix with cervidil overnight, for picotin.
[2020-10-02] MEDS: OXYTOCIN PREMIX 30 UNIT/500 ML PLAST..BAG IV (08:09)
--- NOTE | 2020-10-02 13:57 | PM.OBPNLAB ---
Date/Time Date Patient Seen: 10/02/20 Time Patient Seen: 13:57 Pain Control Pain control: tolerating well Pelvic Exam Dilation (cm): 4 Effacement (%): 80 station: -1 Amniotic membrane status: Ruptured (AROM, clear) Contractions Pitocin rate (mU/min): 17 Contraction frequency (min): 3 Contraction pattern: Irregular Contraction intensity: Moderate Status status: Category l Heart Rate Baseline: 135 Monitor Accelerations: Present Monitor Decelerations: Absent Monitor Variability: Moderate Comments: VSS Assessment and Plan Assessment: induction ongoing Plan: continuous present management
--- NOTE | 2020-10-02 15:59 | PM.OBPNLAB ---
Date/Time Date Patient Seen: 10/02/20 Time Patient Seen: 16:00 Pelvic Exam Dilation (cm): 9 Effacement (%): 100 station: 0 (+bloody show) Amniotic membrane status: Ruptured (AROM, clear) Comments: 9.5cm, small anterior lip Contractions Pitocin rate (mU/min): 17 Contraction frequency (min): 3 Contraction pattern: Irregular Contraction intensity: Moderate Status status: Category ll Heart Rate Baseline: 135 Monitor Accelerations: Absent Monitor Decelerations: Variable Monitor Variability: Moderate Assessment and Plan Assessment: induction ongoing Plan: continuous present management Comments: Patient fully dilated, receiving epidural bolus per patient request then to begin 2nd stage. Anticipate vaginal delivery.
[2020-10-02] MEDS: miSOPROStoL 200 MCG TABLET 1000 MCG PR (16:25)
[2020-10-02] MEDS: CARBOPROST 250 MCG/ML AMPUL IM (17:15)
[2020-10-02] MEDS: OXYTOCIN PREMIX 30 UNIT/500 ML PLAST..BAG 125 UNIT IV (17:20)
--- NOTE | 2020-10-02 17:25 | P.PCNOB_ITS ---
Labor & Delivery Delivery date: 10/02/20 Intrapartal events: Mild Preeclampsia, Acceleration and Deceleration Cervical ripening method: per Cervidil protocol Induction method: per pitocin protocol Delivery augmentation: rupture of membranes Delivery monitor: external FHT and external uterine Route of delivery: L&D Laceration Description: None Delivery repair: vicryl Estimated blood loss (mL): 600 Anesthesia Type: Epidural Complications: hemorrhage Narrative: This patient is now a P3 who transferred care in the 3rd trimester from the [facility], and was found to have a heavily calcified placenta. She was placed in monitoring, and developed preeclampsia without severe features at 38 weeks gestation. She was induced with cervidil and pitocin, and progressed rapidly to fully dilated after AROM. After a short 2nd stage, she was delivered of a healthy baby girl via . The shoulders delivered with ease, there was no nuchal cord, and there were no perinal, labial, or cervical lacerations. The placenta delivered spontaneously and intact shortly thereafter, with no signs of abruption. Immediately after delivery, lochia was minimal. 1 hour after delivery, a hemorrhage occurred. Over the next several hours, a slow but persistent blood loss of 100-300 cc an hour recurred in small gushes or collections of clot. Patient was stable hemodynamically throughout, and bedside ultrasound by an laboratory development technician showed no sign of retained placenta.. The patient was administered a total of 60mU of pitocin, 1000mg rectal cytotec, 1 dose IM Hemabate, 0.2 mg IM Methergine, and finally 1 g TXA. After emptying the bladder and administration of the TXA, the bleeding normalized. Repeat CBC was stable, and the patient tolerated the above well. After an extended period of normal bleeding and overall stability, the patient was allowed to eat. [place] Baby 1: gender: Female Presentation: vertex Position: Left Occiput Anterior Placenta delivery description: Spontaneous Cord Vessel Description: 3 Vessels score (1 min): 8 score (5 min): 9 Narrative: Sheryl Plan for aftercare: Routine care with close monitoring of vital signs and vaginal bleeding. Repeat labs in a.m..
[2020-10-02] MEDS: METHYLERGONOVINE 0.2 MG/ML VIAL IM (17:35)
--- NOTE | 2020-10-02 17:43 | DI.US.S_ITS ---
PROCEDURE: US OB LIMITED INDICATIONS: assess for retained products of conception TECHNIQUE: Real-time scanning was performed of the fetus, with image documentation. Endovaginal scanning: Not performed COMPARISON: None. FINDINGS: Limited ultrasound examination of uterus in shows no discrete retained products. Bulky uterus is noted. IMPRESSION: No gross retained product is seen on this limited post delivery study. Dictated by: Brian Abbott M.D. on 10/02/2020 at 18:22 Approved by: Brian Abbott M.D. on 10/02/2020 at 18:24
[2020-10-02] MEDS: CEFAZOLIN 2 GM/100 ML FROZ.PIGGY IV (17:48)
[2020-10-02] MEDS: ONDANSETRON 4 MG/2 ML INJ IV (18:09)
[2020-10-02] MEDS: ACETAMINOPHEN 325 MG TABLET 650 MG PO (18:10)
[2020-10-02] MEDS: DIPHENOXYLATE/ATROP 2.5/0.025 TABLET 1 EACH PO (18:10)
[2020-10-02] MEDS: MORPHINE 4 MG/ML INJ IV (18:54)
[2020-10-02] MEDS: TRANEXAMIC ACID 1,000 MG in SODIUM CHLORIDE 0.9% 100 ML 400 ML IV (19:17)
[2020-10-02 19:25] LABS: Add Manual Diff / Slide Review NO; Basophils Absolute Auto 100 /uL (0-100); Basophils Percent Auto 0.4 % (0-2); Eosinophils Absolute Auto 0 /uL (0-450); Eosinophils Percent Auto 0.1 % (2-4); Hemoglobin 10.1 g/dL (12.0-16.0); Lymphocytes Absolute Auto 1800 /uL (1100-4500); Lymphocytes Percent Auto 13.3 % (25-40); Mean Corpuscular HGB Conc 32.5 % (30-36); Mean Corpuscular Hemoglobin 30.5 PG (26-34); Mean Corpuscular Volume 94.1 fL (80-100); Monocytes Absolute Auto 800 /uL (0-900); Monocytes Percent Auto 5.7 % (3-14); Neutrophils Absolute Auto 11000 /uL (1500-7000); Neutrophils Percent Auto 80.5 % (50-75); Platelet Count 163 X10^3/uL (150-400); Red Blood Cell Count 3.29 X10^6/uL (4.0-5.2); Red Cell Distribution Width 14.4 % (11.6-14.8); White Blood Cell Count 13.7 X10^3/uL (4.5-11.0)
[2020-10-02 19:48] LABS: Fibrinogen 269 mg/dL (211-428)
[2020-10-02 19:58] LABS: Prothrombin Time 10.9 SECONDS (10.1-12.7)
[2020-10-02 20:00] LABS: PTT Partial Thromboplastin Tim 27 SECONDS (26.4-36.2)
[2020-10-02] MEDS: DERMOPLAST SPRAY 20% 60 ML 1 SPRAY TOP (21:20)
[2020-10-03] MEDS: ACETAMINOPHEN 325 MG TABLET 650 MG PO ×2 (03:49→10:54)
[2020-10-03 07:23] LABS: Add Manual Diff / Slide Review NO; Basophils Absolute Auto 100 /uL (0-100); Basophils Percent Auto 0.4 % (0-2); Eosinophils Absolute Auto 100 /uL (0-450); Eosinophils Percent Auto 0.9 % (2-4); Hematocrit 26.8 % (36-46); Hemoglobin 8.9 g/dL (12.0-16.0); Lymphocytes Absolute Auto 2600 /uL (1100-4500); Mean Corpuscular HGB Conc 33.2 % (30-36); Mean Corpuscular Hemoglobin 30.9 PG (26-34); Mean Corpuscular Volume 93.2 fL (80-100); Monocytes Absolute Auto 900 /uL (0-900); Monocytes Percent Auto 6.7 % (3-14); Neutrophils Absolute Auto 9200 /uL (1500-7000); Platelet Count 159 X10^3/uL (150-400); Red Blood Cell Count 2.88 X10^6/uL (4.0-5.2); Red Cell Distribution Width 14.8 % (11.6-14.8); White Blood Cell Count 12.8 X10^3/uL (4.5-11.0)
[2020-10-03 07:43] LABS: Aspartate Aminotransferase 29 IU/L (14-36); BUN Creatinine Ratio 17.4 (6-22); Blood Urea Nitrogen 8 mg/dL (7-17); Estimated Glomerular Filt Rate > 60.0 mL/min (>60); Uric Acid 2.8 mg/dL (2.5-6.2)
--- NOTE | 2020-10-03 10:26 | PM.OBDS.1 ---
Discharge Providers Provider Date of admission: 10/01/20 15:28 Discharge Date: 10/03/20 Primary care physician: Juan Antonio Corral Consults: 10/03/20 16:37 Consult to Testboard Operator Routine Comment: Discharge provider: Farida Leblanc MD Summary Hospital Course Date Patient Seen: 10/03/20 Time Patient Seen: 10:28 Procedures: Hospital Course: This patient was admitted for induction of labor for preeclampsia without severe features at 38 weeks gestation. She was induced with cervidil and pitocin, and underwent an uncomplicated vaginal delivery with no perineal laceration. The placenta delivered spontaneously and intact, and the immediate period was uncomplicated. 1 hour after delivery, the patient began a hemorrhage that occurred in a series of small gushes and clots over 2 hours, with minimal bleeding in between. She received pitocin, cytotec, hemabate, methergine, and TXA, and had multiple exams and an ultrasound showing no retained products of conception. Her bleeding resolved, and remained mild over the rest of her stay with no signs or symptoms of PIH or infection. She was discharged late on PPD#1 with planned f/u in 3 days in clinic. Peripartum Data Infant Delivery Method: Natural Vaginal Laceration Description: None complications: other ( hemorrhage) 1: Gender: Female Disposition of : home Status at Discharge Cognitive/behavioral status at discharge: oriented Functional status at discharge: independent ambulation Overall status at discharge: patient is progressing back to baseline Time Spent with Patient Time attestation: Total time spent providing and/or coordinating discharge services: Time spent: Greater than 30 minutes Objective Labs Result Diagrams: 10/03/20 07:15 10/03/20 07:15 Labs: Laboratory Results - last 24 hr 10/02/20 10/02/20 10/02/20 19:18 19:18 19:18 WBC 13.7 H D RBC 3.29 L Hgb 10.1 L Hct 31.0 L MCV 94.1 MCH 30.5 MCHC 32.5 RDW 14.4 Plt Count 163 Neut % (Auto) 80.5 H Lymph % (Auto) 13.3 L [place] % (Auto) 5.7 Eos % (Auto) 0.1 L Baso % (Auto) 0.4 Neut # (Auto) 79312 H Lymph # (Auto) 1800 [place] # (Auto) 800 Eos # (Auto) 0 Baso # (Auto) 100 PT 10.9 INR 1.0 APTT 27 Fibrinogen 269 BUN Creatinine Estimated GFR BUN/Creatinine Ratio Uric Acid AST 10/03/20 10/03/20 07:15 07:15 WBC 12.8 H RBC 2.88 L Hgb 8.9 L Hct 26.8 L MCV 93.2 MCH 30.9 MCHC 33.2 RDW 14.8 Plt Count 159 Neut % (Auto) 72.0 Lymph % (Auto) 20.0 L [place] % (Auto) 6.7 Eos % (Auto) 0.9 L Baso % (Auto) 0.4 Neut # (Auto) 9200 H Lymph # (Auto) 2600 [place] # (Auto) 900 Eos # (Auto) 100 Baso # (Auto) 100 PT INR APTT Fibrinogen BUN 8 Creatinine 0.46 L Estimated GFR > 60.0 BUN/Creatinine Ratio 17.4 Uric Acid 2.8 AST 29 Exam Vital Signs (past 8 hours): 108-128/66-77, HR 70s Narrative Exam Narrative: Resting in bed with baby, well appearing. Ambulating, voiding, tolerating PO, passing flatus, mild lochia, no other complaints. Const General: cooperative, healthy appearing and comfortable Resp Effort & Inspection: normal respiratory effort Auscultation: clear to auscultation bilaterally Cardio Rate: regular rate Rhythm: regular rhythm GI Palpation: soft and No tender Extrem Other: no UE edema, facial edema resolved, 2+ LE edema Discharge Plan Discharge Plan Patient Disposition: Home Discharge orders & Medications Prescriptions: Continued prenat.vits,cassy,pid-[id number] Tablet 1 tab PO DAILY RF: 0 ferrous sulfate [Feosol] 325 mg (65 mg iron) tablet 325 mg PO DAILY Qty: 30 RF: 3 Discontinued aspirin 81 mg tablet,chewable 81 mg PO DAILY RF: 0 Follow up/Referrals: Farida Leblanc MD [Physician] - 3-5 Days (blood pressure check) Juan Antonio Corral [Primary Care Provider] - Diet/Activity/Treatments Diet: Regular Activity: Nothing in the vagina for 6 weeks. Avoid heavy lifting for 6 weeks. If you have increasing bleeding, fevers, chills, headaches, visual changes, chest pain, or any other symptoms, call or come to the ED. Skin/Wound/Dressing Care Report to your healthcare provider any signs of infection, such as:: chills, fever, night sweats, increased pain, unusual drainage and unusual redness Visit Report/Discharge Packet Instructions: Pre-eclampsia, DI for Labor and Delivery, Vaginal Stand Alone Forms: Discharge: Care Discharge Data Primary Care Provider: Juan Antonio Corral
[2020-10-03] MEDS: IBUPROFEN 600 MG TABLET PO (10:54)
[2020-10-03] MEDS: LANOLIN OINT 7 GM 1 APPLIC TOP (10:54)
[2020-10-03 14:26] VITALS: BP 117/68; PULSE 72; RESP 18; TEMP 37.1
[2020-10-03] MEDS: RHO(D) IMMUNE GLOBULIN 1,500 UNIT SYRINGE 1500 UNIT IM (15:45)
== END 2020-10-03 16:00 | disposition home or self-care (01) | DRG 807 ==
PROVIDERS: Admitting Provider Obstetrics & Gynecology; PCP Student in an Organized Health Care Education/Training Program; Referring Provider Obstetrics & Gynecology; Visit Provider Obstetrics & Gynecology
DX: O14.04 Mild to moderate pre-eclampsia, complicating childbirth (principal); Z37.0 Single live birth; O60.14X0 Preterm labor third trimester with preterm delivery third trimester, not applicable or unspecified; O72.2 Delayed and secondary postpartum hemorrhage; Z3A.38 38 weeks gestation of pregnancy; Z01.812 Encounter for preprocedural laboratory examination; Z20.828 Contact with and (suspected) exposure to other viral communicable diseases
CPT/HCPCS: 01967; 36415; 59050; 59200; 59410; 76815; 82570; 84156; 84450; 84550; 85025; 85384; 85461; 85610; 85730; 86850; 86870; 86900; 86901; 87635; G0379; J0690; J2210; J2270; J2405; J2590; J2790; S0191

== ENCOUNTER 2021-03-17 08:15 | Outpatient (RCR) | payer OTHER, SELFPAY ==
--- NOTE | 2021-01-06 10:52 | PT.OIE ---
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 Blood type, Rh negative Cervical disc disorder with radiculopathy Chronic neck pain Depression Dysplasia of cervix H/O being hospitalized H/O transfusion of whole blood (~2011) LGSIL on Pap smear of cervix Lump of right breast Morbid obesity Myopia PIH ( induced hypertension) hemorrhage (~10/2011) Pre-eclampsia (~2010) PTSD (post-traumatic stress disorder) Superficial keratitis (spontaneous vaginal delivery) (~11/08/11) (spontaneous vaginal delivery) (~03/27/13) Thrombosed external hemorrhoids Past Surgical History (Last Updated 11/12/20 @ 21:14 by Alana Desouza DO) H/O inguinal hernia repair (~1989) H/O spinal fusion (~10/2017) History of tonsillectomy and adenoidectomy (~1989) Hx of breast implants, bilateral (~2013) Hx of LASIK (~2009) S/P LEEP (loop electrosurgical excision procedure) (~2009) S/P wisdom tooth extraction (~1996) Visit Care Team Role Provider Type Juan Antonio Corral Primary Care Provider Non-Staff Specialty: Medical Address: [address] [place] [address], [facility] Email: Attending Provider Referring Provider Specialty: Address: Phone: Fax: Email: Physical Therapy Initial Evaluation PT-OP-A Visit Information Start: 01/06/21 08:12 Freq: Status: Active Protocol: Document 01/06/21 09:00 AMB (Rec: 01/09/21 10:52 AMB [email or web address]) Out-Patient Physical Therapy Visit Information Visit Information Visit Type Initial Evaluation Visit Start Time 09:00 Visit Stop Time 09:45 Total Visit Minutes 45 Visit Number 1 PT-OP-B Current Condition Start: 01/06/21 08:12 Freq: Status: Active Protocol: Document 01/06/21 09:01 AMB (Rec: 01/06/21 09:13 AMB [id number]) Current Condition History of Current Condition Onset Date September 2020 Current Complaints Stress/urge urinary incontinence s/p vaginal delivery History of Current Condition with most recent 3 months ago, vaginal delivery no tearing with this delivery, no instrumet assistance, denies prolonged pushing. Urgency with leaking, ROBERTH with exercise. Laughing and coughing, squatting increases leaking, a little bit of incontinence of gas. 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 Treatment Goals Patient/Caregiver Goals Return to exercise without urinary leakage, decrease urgency. Prior Functional Status Baseline Function- ADL's Independent Baseline Function- Mobility Independent Baseline Function- Recreation/Hobbies long distance running without leaking Current Functional Impairments (Reported) Functional Limitations- Other leaking with exercise, urge, cough laugh Personal Factors Other Personal Factors That May Effect ACDF C5-7- denies previous Therapy/Recovery urinary sx before/after surgery, hx hernia, depression /anxiety PT-OP-C Subjective Start: 01/06/21 08:12 Freq: Status: Active Protocol: Document 01/06/21 09:00 AMB (Rec: 01/09/21 10:52 AMB [email or web address]) Patient Questionnaires Pelvic Pain and Urgency/Frequency Patient Symptom Scale Pelvic Pain Score 7 PT-OP-I Pelvic Floor Start: 01/06/21 08:12 Freq: Status: Active Protocol: Document 01/06/21 09:00 AMB (Rec: 01/09/21 10:52 AMB [email or web address]) Pelvic Floor Assessment Urine Pelvic Floor Surgery No Urinary Symptoms Urge Sensation Leakage Size Medium Leakage Cause Cough,Exercise,Lifting,Sneeze, Urge Voiding Frequency 6/day Nocturia 1 Urine Pad Type Panty Liner Pelvic Clock Pelvic Clock Other no tenderness/tightness, mild scar tissue from previous tearing at perineum Perineal Descent Resting Absent Bearing Absent Contraction Ability Voluntary Contraction Weak Voluntary Relaxation Weak Manual Muscle Testing Left 1 Manual Muscle Testing Right 1 Manual Muscle Testing Anterior 1 Manual Muscle Testing Posterior 2 Comments Pelvic Floor Comments Poor pelvic floor strength with tendency to over use adductors/abdominals, poor endurance PT-OP-T Assessment and Plan Start: 01/06/21 08:12 Freq: Status: Active Protocol: Document 01/06/21 09:00 AMB (Rec: 01/09/21 10:52 AMB [email or web address]) Physical Therapy Assessment Rehab Potential Rehabilitation Potential Good Evaluation Complexity Number of Personal Factors/Comorbidities 1-2 Number of Body Systems Impaired 1-2 Clinical Presentation at Evaluation Stable Impairments Impairments Strength Goals Two Impairment Pelvic floor strength Short Term Goal (STG) Carine will be able to contract her pelvic floor for 10 seconds to show improved strength. STG Duration 4 weeks Custodial Goal (LTG) Carine will be able to contract her pelvic floor while lifting 20 pounds from the floor to waist height without leaking. LTG Duration 8 weeks One Impairment Continence Short Term Goal (STG) Carine will use urge suppression techniques to be able to avoid urge incontinence. STG Duration 4 weeks Custodial Goal (LTG) Carine will be able to laugh/ cough without leaking urine. LTG Duration 8 weeks Assessment Summary Assessment Carine attends physical therapy after her third vaginal delivery with stress and urge urinary incontinence and significantly weak pelvic floor musculature. 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 Physical Therapy Plan Frequency and Duration Frequency of Treatment 1x/Week Duration of Treatment 8 weeks Plan of Care Start Date 01/06/21 Plan of Care End Date 03/03/21 Therapeutic Interventions Therapeutic Interventions Home Exercise Program,Manual Therapy,Neuromuscular Re- education,Self-Care/Home Management,Therapeutic Activities,Therapeutic Exercises Modalities Biofeedback,Cold Pack/Ice Massage,Electric Stimulation, Hot Packs Next Visit Focus/Plan Next Note Type Treatment Note Next Visit Plan Follow up on urgency, sEMG, progress HEP
--- NOTE | 2021-01-06 10:54 | PT.OPPOC ---
Physical, Occupational & Speech Therapy At [facility] Current Diagnoses Mixed incontinence (01/06/21) Pelvic and perineal pain (01/06/21) Visit Care Team Role Provider Type Juan Antonio Corral Primary Care Provider Non-Staff Specialty: Medical Address: [address] [place] [address], [id number] Email: Attending Provider Referring Provider Specialty: Address: Phone: Fax: Email: Plan Of Care PT-OP-T Assessment and Plan Start: 01/06/21 08:12 Freq: Status: Active Protocol: Document 01/06/21 09:00 AMB (Rec: 01/09/21 10:52 AMB [email or web address]) Physical Therapy Assessment Rehab Potential Rehabilitation Potential Good Evaluation Complexity Number of Personal Factors/Comorbidities 1-2 Number of Body Systems Impaired 1-2 Clinical Presentation at Evaluation Stable Impairments Impairments Strength Goals Two Impairment Pelvic floor strength Short Term Goal (STG) Carine will be able to contract her pelvic floor for 10 seconds to show improved strength. STG Duration 4 weeks Shelter Goal (LTG) Carine will be able to contract her pelvic floor while lifting 20 pounds from the floor to waist height without leaking. LTG Duration 8 weeks One Impairment Continence Short Term Goal (STG) Carine will use urge suppression techniques to be able to avoid urge incontinence. STG Duration 4 weeks Pie Bottomer Goal (LTG) Carine will be able to laugh/ cough without leaking urine. LTG Duration 8 weeks Assessment Summary Assessment Carine attends physical therapy after her third vaginal delivery with stress and urge urinary incontinence and significantly weak pelvic floor musculature. 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 Physical Therapy Plan Frequency and Duration Frequency of Treatment 1x/Week Duration of Treatment 8 weeks Plan of Care Start Date 01/06/21 Plan of Care End Date 03/03/21 Therapeutic Interventions Therapeutic Interventions Home Exercise Program,Manual Therapy,Neuromuscular Re- education,Self-Care/Home Management,Therapeutic Activities,Therapeutic Exercises Modalities Biofeedback,Cold Pack/Ice Massage,Electric Stimulation, Hot Packs Next Visit Focus/Plan Next Note Type Treatment Note Next Visit Plan Follow up on urgency, sEMG, progress HEP Plan of Care Dates Plan of Care Start Date 01/06/21 Plan of Care End Date 03/03/21 Electronically Signed by: Katherine Henson, PT 01/09/21 1054 Please Sign and Return: I have reviewed this Plan of Care and certify that the skilled therapy services above are required to meet the patient?s needs. Physician Signature Date Printed Name and Credentials Clinical Instructor Signature Printed Name and Credentials
--- NOTE | 2021-01-13 13:02 | PT.OTN ---
Current Diagnoses Mixed incontinence (01/13/21) Pelvic and perineal pain (01/13/21) Physical Therapy Treatment Note PT-OP-A Visit Information Start: 01/06/21 08:12 Freq: Status: Active Protocol: Document 01/13/21 09:01 AMB (Rec: 01/13/21 10:17 AMB [id number]) Out-Patient Physical Therapy Visit Information Visit Information Visit Type Treatment Note Visit Start Time 09:00 Visit Stop Time 09:45 Total Visit Minutes 45 Visit Number 2 PT-OP-B Current Condition Start: 01/06/21 08:12 Freq: Status: Active Protocol: Document 01/06/21 09:01 AMB (Rec: 01/06/21 09:13 AMB [id number]) Current Condition History of Current Condition Onset Date September 2020 Current Complaints Stress/urge urinary incontinence s/p vaginal delivery History of Current Condition with most recent 3 months ago, vaginal delivery no tearing with this delivery, no instrumet assistance, denies prolonged pushing. Urgency with leaking, ROBERTH with exercise. Laughing and coughing, squatting increases leaking, a little bit of incontinence of gas. 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 Treatment Goals Patient/Caregiver Goals Return to exercise without urinary leakage, decrease urgency. Prior Functional Status Baseline Function- ADL's Independent Baseline Function- Mobility Independent Baseline Function- Recreation/Hobbies long distance running without leaking Current Functional Impairments (Reported) Functional Limitations- Other leaking with exercise, urge, cough laugh Personal Factors Other Personal Factors That May Effect ACDF C5-7- denies previous Therapy/Recovery urinary sx before/after surgery, hx hernia, depression /anxiety PT-OP-C Subjective Start: 01/06/21 08:12 Freq: Status: Active Protocol: Document 01/13/21 09:01 AMB (Rec: 01/13/21 10:17 AMB [id number]) OP-PT Subjective Patient Comments Patient Comments Pt reports she is doing exercises, long holds are more challenging. PT-OP-I Pelvic Floor Start: 01/06/21 08:12 Freq: Status: Active Protocol: Document 01/06/21 09:00 AMB (Rec: 01/09/21 10:52 AMB [email or web address]) Pelvic Floor Assessment Urine Pelvic Floor Surgery No Urinary Symptoms Urge Sensation Leakage Size Medium Leakage Cause Cough,Exercise,Lifting,Sneeze, Urge Voiding Frequency 6/day Nocturia 1 Urine Pad Type Panty Liner Pelvic Clock Pelvic Clock Other no tenderness/tightness, mild scar tissue from previous tearing at perineum Perineal Descent Resting Absent Bearing Absent Contraction Ability Voluntary Contraction Weak Voluntary Relaxation Weak Manual Muscle Testing Left 1 Manual Muscle Testing Right 1 Manual Muscle Testing Anterior 1 Manual Muscle Testing Posterior 2 Comments Pelvic Floor Comments Poor pelvic floor strength with tendency to over use adductors/abdominals, poor endurance PT-OP-Q Treatments Start: 01/06/21 08:12 Freq: Status: Active Protocol: Document 01/13/21 09:00 AMB (Rec: 01/13/21 13:02 AMB [email or web address]) Neuro Re-Education Treatment Other Activities 2 Details roll in roll out on sEMG Comments with #3 tband 1 Details sEMG Comments quick flicks and long holds PT-OP-T Assessment and Plan Start: 01/06/21 08:12 Freq: Status: Active Protocol: Document 01/13/21 09:01 AMB (Rec: 01/13/21 10:17 AMB [id number]) Physical Therapy Assessment Assessment Summary Assessment quick flicks max 10.7, baseline 2. Long holds max 14 , avg 7.6. Overall good understanding and no signs of compensation with abdominals, good breathing.
--- NOTE | 2021-01-27 10:09 | PT.OTN ---
Current Diagnoses Mixed incontinence (01/27/21) Pelvic and perineal pain (01/27/21) Physical Therapy Treatment Note PT-OP-A Visit Information Start: 01/06/21 08:12 Freq: Status: Active Protocol: Document 01/27/21 09:00 AMB (Rec: 01/27/21 09:41 AMB [id number]) Out-Patient Physical Therapy Visit Information Visit Information Visit Type Treatment Note Visit Start Time 09:00 Visit Stop Time 09:45 Total Visit Minutes 45 Visit Number 3 PT-OP-B Current Condition Start: 01/06/21 08:12 Freq: Status: Active Protocol: Document 01/06/21 09:01 AMB (Rec: 01/06/21 09:13 AMB [id number]) Current Condition History of Current Condition Onset Date September 2020 Current Complaints Stress/urge urinary incontinence s/p vaginal delivery History of Current Condition with most recent 3 months ago, vaginal delivery no tearing with this delivery, no instrumet assistance, denies prolonged pushing. Urgency with leaking, ROBERTH with exercise. Laughing and coughing, squatting increases leaking, a little bit of incontinence of gas. 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 Treatment Goals Patient/Caregiver Goals Return to exercise without urinary leakage, decrease urgency. Prior Functional Status Baseline Function- ADL's Independent Baseline Function- Mobility Independent Baseline Function- Recreation/Hobbies long distance running without leaking Current Functional Impairments (Reported) Functional Limitations- Other leaking with exercise, urge, cough laugh Personal Factors Other Personal Factors That May Effect ACDF C5-7- denies previous Therapy/Recovery urinary sx before/after surgery, hx hernia, depression /anxiety PT-OP-C Subjective Start: 01/06/21 08:12 Freq: Status: Active Protocol: Document 01/27/21 09:00 AMB (Rec: 01/27/21 09:49 AMB [id number]) OP-PT Subjective Patient Comments Patient Comments Pt did have a bit of urgency, has been weightlifting and didn't have leaking with that. PT-OP-I Pelvic Floor Start: 01/06/21 08:12 Freq: Status: Active Protocol: Document 01/06/21 09:00 AMB (Rec: 01/09/21 10:52 AMB [email or web address]) Pelvic Floor Assessment Urine Pelvic Floor Surgery No Urinary Symptoms Urge Sensation Leakage Size Medium Leakage Cause Cough,Exercise,Lifting,Sneeze, Urge Voiding Frequency 6/day Nocturia 1 Urine Pad Type Panty Liner Pelvic Clock Pelvic Clock Other no tenderness/tightness, mild scar tissue from previous tearing at perineum Perineal Descent Resting Absent Bearing Absent Contraction Ability Voluntary Contraction Weak Voluntary Relaxation Weak Manual Muscle Testing Left 1 Manual Muscle Testing Right 1 Manual Muscle Testing Anterior 1 Manual Muscle Testing Posterior 2 Comments Pelvic Floor Comments Poor pelvic floor strength with tendency to over use adductors/abdominals, poor endurance PT-OP-Q Treatments Start: 01/06/21 08:12 Freq: Status: Active Protocol: Document 01/27/21 09:00 AMB (Rec: 01/27/21 09:41 AMB [id number]) Therapeutic Exercises Supine Exercises 2 Supine Exercise Name roll out Reps/Minutes #2 tband 1 Supine Exercise Name supine december with PF Reps/Minutes 5 min Standing Exercises 1 Standing Exercise Name quick flicks and long holds Reps/Minutes 10 min Comments wbos, stride stance Other Exercises 1 Other Exercise Name long hold quadruped Reps/Minutes 5 min Neuro Re-Education Treatment Other Activities 1 Details sEMG Comments quick flicks and long holds PT-OP-T Assessment and Plan Start: 01/06/21 08:12 Freq: Status: Active Protocol: Document 01/27/21 09:00 AMB (Rec: 01/27/21 09:41 AMB [id number]) Physical Therapy Assessment Assessment Summary Assessment Progressed pt HEP to standing quick flicks, but kept long holds in seated or quadruped. Recommended avoiding runs for right now. Physical Therapy Plan Next Visit Focus/Plan Next Visit Plan follow up on sEMG- standing long holds still challenging but quick flicks ok
--- NOTE | 2021-02-03 09:15 | PT.OTN ---
Current Diagnoses Mixed incontinence (02/03/21) Pelvic and perineal pain (02/03/21) Physical Therapy Treatment Note PT-OP-A Visit Information Start: 01/06/21 08:12 Freq: Status: Active Protocol: Document 02/03/21 08:15 AMB (Rec: 02/03/21 15:58 AMB [email or web address]) Out-Patient Physical Therapy Visit Information Visit Information Visit Type Treatment Note Visit Start Time 08:15 Visit Stop Time 09:00 Total Visit Minutes 45 PT-OP-B Current Condition Start: 01/06/21 08:12 Freq: Status: Active Protocol: Document 01/06/21 09:01 AMB (Rec: 01/06/21 09:13 AMB [id number]) Current Condition History of Current Condition Onset Date September 2020 Current Complaints Stress/urge urinary incontinence s/p vaginal delivery History of Current Condition with most recent 3 months ago, vaginal delivery no tearing with this delivery, no instrumet assistance, denies prolonged pushing. Urgency with leaking, ROBERTH with exercise. Laughing and coughing, squatting increases leaking, a little bit of incontinence of gas. 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 Treatment Goals Patient/Caregiver Goals Return to exercise without urinary leakage, decrease urgency. Prior Functional Status Baseline Function- ADL's Independent Baseline Function- Mobility Independent Baseline Function- Recreation/Hobbies long distance running without leaking Current Functional Impairments (Reported) Functional Limitations- Other leaking with exercise, urge, cough laugh Personal Factors Other Personal Factors That May Effect ACDF C5-7- denies previous Therapy/Recovery urinary sx before/after surgery, hx hernia, depression /anxiety PT-OP-C Subjective Start: 01/06/21 08:12 Freq: Status: Active Protocol: Document 02/03/21 08:15 AMB (Rec: 02/06/21 08:31 AMB [email or web address]) OP-PT Subjective Patient Comments Patient Comments Sx are about the same, urgency still there at times, especially when sees the toilet. Hard laughter causes sx. PT-OP-I Pelvic Floor Start: 01/06/21 08:12 Freq: Status: Active Protocol: Document 01/06/21 09:00 AMB (Rec: 01/09/21 10:52 AMB [email or web address]) Pelvic Floor Assessment Urine Pelvic Floor Surgery No Urinary Symptoms Urge Sensation Leakage Size Medium Leakage Cause Cough,Exercise,Lifting,Sneeze, Urge Voiding Frequency 6/day Nocturia 1 Urine Pad Type Panty Liner Pelvic Clock Pelvic Clock Other no tenderness/tightness, mild scar tissue from previous tearing at perineum Perineal Descent Resting Absent Bearing Absent Contraction Ability Voluntary Contraction Weak Voluntary Relaxation Weak Manual Muscle Testing Left 1 Manual Muscle Testing Right 1 Manual Muscle Testing Anterior 1 Manual Muscle Testing Posterior 2 Comments Pelvic Floor Comments Poor pelvic floor strength with tendency to over use adductors/abdominals, poor endurance PT-OP-Q Treatments Start: 01/06/21 08:12 Freq: Status: Active Protocol: Document 02/03/21 08:15 AMB (Rec: 02/06/21 08:31 AMB [email or web address]) Neuro Re-Education Treatment Other Activities 1 Details sEMG Comments quick flicks and long holds PT-OP-T Assessment and Plan Start: 01/06/21 08:12 Freq: Status: Active Protocol: Document 02/03/21 08:15 AMB (Rec: 02/03/21 15:59 AMB [email or web address]) Physical Therapy Assessment Assessment Summary Assessment sEMG slight improvement in max , but averages are about the same. Encouraged pt in gentle TA with pelvic floor exercises for diastasis, since she was symptomatic with hip thrusts. Physical Therapy Plan Next Visit Focus/Plan Next Note Type Treatment Note Next Visit Plan Continue pelvic floor and TA strengthening, working in supine, seated, quadruped, standing is still difficult.
--- NOTE | 2021-02-10 08:57 | PT.OTN ---
Current Diagnoses Mixed incontinence (02/10/21) Pelvic and perineal pain (02/10/21) Physical Therapy Treatment Note PT-OP-A Visit Information Start: 01/06/21 08:12 Freq: Status: Active Protocol: Document 02/10/21 08:15 AMB (Rec: 02/10/21 08:56 AMB [id number]) Out-Patient Physical Therapy Visit Information Visit Information Visit Type Treatment Note Visit Start Time 08:15 Visit Stop Time 09:00 Total Visit Minutes 45 Visit Number 5 PT-OP-B Current Condition Start: 01/06/21 08:12 Freq: Status: Active Protocol: Document 01/06/21 09:01 AMB (Rec: 01/06/21 09:13 AMB [id number]) Current Condition History of Current Condition Onset Date September 2020 Current Complaints Stress/urge urinary incontinence s/p vaginal delivery History of Current Condition with most recent 3 months ago, vaginal delivery no tearing with this delivery, no instrumet assistance, denies prolonged pushing. Urgency with leaking, ROBERTH with exercise. Laughing and coughing, squatting increases leaking, a little bit of incontinence of gas. 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 Treatment Goals Patient/Caregiver Goals Return to exercise without urinary leakage, decrease urgency. Prior Functional Status Baseline Function- ADL's Independent Baseline Function- Mobility Independent Baseline Function- Recreation/Hobbies long distance running without leaking Current Functional Impairments (Reported) Functional Limitations- Other leaking with exercise, urge, cough laugh Personal Factors Other Personal Factors That May Effect ACDF C5-7- denies previous Therapy/Recovery urinary sx before/after surgery, hx hernia, depression /anxiety PT-OP-C Subjective Start: 01/06/21 08:12 Freq: Status: Active Protocol: Document 02/10/21 08:15 AMB (Rec: 02/10/21 08:56 AMB [id number]) OP-PT Subjective Patient Comments Patient Comments Symptoms are slowly improving PT-OP-I Pelvic Floor Start: 01/06/21 08:12 Freq: Status: Active Protocol: Document 01/06/21 09:00 AMB (Rec: 01/09/21 10:52 AMB [id number]) Pelvic Floor Assessment Urine Pelvic Floor Surgery No Urinary Symptoms Urge Sensation Leakage Size Medium Leakage Cause Cough,Exercise,Lifting,Sneeze, Urge Voiding Frequency 6/day Nocturia 1 Urine Pad Type Panty Liner Pelvic Clock Pelvic Clock Other no tenderness/tightness, mild scar tissue from previous tearing at perineum Perineal Descent Resting Absent Bearing Absent Contraction Ability Voluntary Contraction Weak Voluntary Relaxation Weak Manual Muscle Testing Left 1 Manual Muscle Testing Right 1 Manual Muscle Testing Anterior 1 Manual Muscle Testing Posterior 2 Comments Pelvic Floor Comments Poor pelvic floor strength with tendency to over use adductors/abdominals, poor endurance PT-OP-Q Treatments Start: 01/06/21 08:12 Freq: Status: Active Protocol: Document 02/10/21 08:15 AMB (Rec: 02/10/21 08:56 AMB [id number]) Therapeutic Exercises Supine Exercises 2 Supine Exercise Name roll out Reps/Minutes #2 tband 1 Supine Exercise Name supine march with PF Reps/Minutes 5 min Standing Exercises 2 Standing Exercise Name lunges Comments with PF and TA 1 Standing Exercise Name quick flicks and long holds Reps/Minutes 10 min Comments wbos, stride stance Other Exercises 2 Other Exercise Name quadruped UE and LE ext Comments with PF 1 Other Exercise Name long hold quadruped Reps/Minutes 5 min PT-OP-T Assessment and Plan Start: 01/06/21 08:12 Freq: Status: Active Protocol: Document 02/10/21 08:15 AMB (Rec: 02/10/21 08:56 AMB [id number]) Physical Therapy Assessment Goals Two Impairment Pelvic floor strength Short Term Goal (STG) Carine will be able to contract her pelvic floor for 10 seconds to show improved strength. STG Duration 4 weeks Receiving Teller Goal (LTG) Carine will be able to contract her pelvic floor while lifting 20 pounds from the floor to waist height without leaking. LTG Duration 8 weeks One Impairment Continence Short Term Goal (STG) Carine will use urge suppression techniques to be able to avoid urge incontinence. STG Duration 4 weeks Alf Goal (LTG) Carine will be able to laugh/ cough without leaking urine. LTG Duration 8 weeks Assessment Summary Assessment Exercised to fatigue with pelvic floor today. Pelvic floor needs to be reset, but can continue to contract. Physical Therapy Plan Next Visit Focus/Plan Next Note Type Treatment Note Next Visit Plan Follow up on lungluis
--- NOTE | 2021-02-17 14:54 | PT.OTN ---
Current Diagnoses Mixed incontinence (02/17/21) Pelvic and perineal pain (02/17/21) Physical Therapy Treatment Note PT-OP-A Visit Information Start: 01/06/21 08:12 Freq: Status: Active Protocol: Document 02/17/21 09:00 AMB (Rec: 02/17/21 09:43 AMB [id number]) Out-Patient Physical Therapy Visit Information Visit Information Visit Type Treatment Note Visit Start Time 09:00 Visit Stop Time 09:45 Total Visit Minutes 45 Visit Number 6 PT-OP-B Current Condition Start: 01/06/21 08:12 Freq: Status: Active Protocol: Document 01/06/21 09:01 AMB (Rec: 01/06/21 09:13 AMB [id number]) Current Condition History of Current Condition Onset Date September 2020 Current Complaints Stress/urge urinary incontinence s/p vaginal delivery History of Current Condition with most recent 3 months ago, vaginal delivery no tearing with this delivery, no instrumet assistance, denies prolonged pushing. Urgency with leaking, ROBERTH with exercise. Laughing and coughing, squatting increases leaking, a little bit of incontinence of gas. 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 Treatment Goals Patient/Caregiver Goals Return to exercise without urinary leakage, decrease urgency. Prior Functional Status Baseline Function- ADL's Independent Baseline Function- Mobility Independent Baseline Function- Recreation/Hobbies long distance running without leaking Current Functional Impairments (Reported) Functional Limitations- Other leaking with exercise, urge, cough laugh Personal Factors Other Personal Factors That May Effect ACDF C5-7- denies previous Therapy/Recovery urinary sx before/after surgery, hx hernia, depression /anxiety PT-OP-C Subjective Start: 01/06/21 08:12 Freq: Status: Active Protocol: Document 02/17/21 09:00 AMB (Rec: 02/17/21 09:43 AMB [id number]) OP-PT Subjective Patient Comments Patient Comments Pt had a hard time getting pelvic floor exercises in this week, baby is in a sleep regression. PT-OP-I Pelvic Floor Start: 01/06/21 08:12 Freq: Status: Active Protocol: Document 01/06/21 09:00 AMB (Rec: 01/09/21 10:52 AMB [id number]) Pelvic Floor Assessment Urine Pelvic Floor Surgery No Urinary Symptoms Urge Sensation Leakage Size Medium Leakage Cause Cough,Exercise,Lifting,Sneeze, Urge Voiding Frequency 6/day Nocturia 1 Urine Pad Type Panty Liner Pelvic Clock Pelvic Clock Other no tenderness/tightness, mild scar tissue from previous tearing at perineum Perineal Descent Resting Absent Bearing Absent Contraction Ability Voluntary Contraction Weak Voluntary Relaxation Weak Manual Muscle Testing Left 1 Manual Muscle Testing Right 1 Manual Muscle Testing Anterior 1 Manual Muscle Testing Posterior 2 Comments Pelvic Floor Comments Poor pelvic floor strength with tendency to over use adductors/abdominals, poor endurance PT-OP-Q Treatments Start: 01/06/21 08:12 Freq: Status: Active Protocol: Document 02/17/21 09:00 AMB (Rec: 02/17/21 09:43 AMB [id number]) Therapeutic Exercises Supine Exercises 1 Supine Exercise Name supine march with PF Reps/Minutes 5 min Comments challenging Sidelying Exercises 1 Sidelying Exercise Name clamshell with PF Reps/Minutes 10 ea Sitting Exercises 1 Sitting Exercise Name 65cm ball Reps/Minutes pelvic tilts, circles, s Standing Exercises 2 Standing Exercise Name lunges Comments with PF and TA Other Exercises 2 Other Exercise Name quadruped UE Comments with PF PT-OP-T Assessment and Plan Start: 01/06/21 08:12 Freq: Status: Active Protocol: Document 02/17/21 09:00 AMB (Rec: 02/17/21 09:43 AMB [id number]) Physical Therapy Assessment Goals Two Impairment Pelvic floor strength Short Term Goal (STG) Carine will be able to contract her pelvic floor for 10 seconds to show improved strength. STG Duration 4 weeks Underground Repairer Goal (LTG) Carine will be able to contract her pelvic floor while lifting 20 pounds from the floor to waist height without leaking. LTG Duration 8 weeks One Impairment Continence Short Term Goal (STG) Carine will use urge suppression techniques to be able to avoid urge incontinence. STG Duration 4 weeks Underground Repairer Goal (LTG) Carine will be able to laugh/ cough without leaking urine. LTG Duration 8 weeks Assessment Summary Assessment Carine does better with squats /lunges, hip abd, but struggles more with hip flexion/extension open chain exercises (marching, bird dog) with stabilizing pelvic floor . Physical Therapy Plan Next Visit Focus/Plan Next Note Type Treatment Note Next Visit Plan Follow up on urgency waiting a little longer when at home to walk to the bathroom
--- NOTE | 2021-03-10 09:35 | PT.OTN ---
Current Diagnoses Mixed incontinence (03/10/21) Pelvic and perineal pain (03/10/21) Physical Therapy Treatment Note PT-OP-A Visit Information Start: 01/06/21 08:12 Freq: Status: Active Protocol: Document 03/10/21 08:11 AMB (Rec: 03/10/21 08:58 AMB [id number]) Out-Patient Physical Therapy Visit Information Visit Information Visit Type Progress Note Visit Start Time 08:15 Visit Stop Time 09:00 Total Visit Minutes 45 Visit Number 7 PT-OP-B Current Condition Start: 01/06/21 08:12 Freq: Status: Active Protocol: Document 01/06/21 09:01 AMB (Rec: 01/06/21 09:13 AMB [id number]) Current Condition History of Current Condition Onset Date September 2020 Current Complaints Stress/urge urinary incontinence s/p vaginal delivery History of Current Condition with most recent 3 months ago, vaginal delivery no tearing with this delivery, no instrumet assistance, denies prolonged pushing. Urgency with leaking, ROBERTH with exercise. Laughing and coughing, squatting increases leaking, a little bit of incontinence of gas. 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 Treatment Goals Patient/Caregiver Goals Return to exercise without urinary leakage, decrease urgency. Prior Functional Status Baseline Function- ADL's Independent Baseline Function- Mobility Independent Baseline Function- Recreation/Hobbies long distance running without leaking Current Functional Impairments (Reported) Functional Limitations- Other leaking with exercise, urge, cough laugh Personal Factors Other Personal Factors That May Effect ACDF C5-7- denies previous Therapy/Recovery urinary sx before/after surgery, hx hernia, depression /anxiety PT-OP-C Subjective Start: 01/06/21 08:12 Freq: Status: Active Protocol: Document 03/10/21 08:15 AMB (Rec: 03/10/21 09:28 AMB [id number]) OP-PT Subjective Patient Comments Patient Comments Pt states that the urgency is not really improving, but she was able to go on a run and not have any leaking. Continues to note ROBERTH with strong laugh/cough if bladder is full. PT-OP-I Pelvic Floor Start: 01/06/21 08:12 Freq: Status: Active Protocol: Document 01/06/21 09:00 AMB (Rec: 01/09/21 10:52 AMB [email or web address]) Pelvic Floor Assessment Urine Pelvic Floor Surgery No Urinary Symptoms Urge Sensation Leakage Size Medium Leakage Cause Cough,Exercise,Lifting,Sneeze, Urge Voiding Frequency 6/day Nocturia 1 Urine Pad Type Panty Liner Pelvic Clock Pelvic Clock Other no tenderness/tightness, mild scar tissue from previous tearing at perineum Perineal Descent Resting Absent Bearing Absent Contraction Ability Voluntary Contraction Weak Voluntary Relaxation Weak Manual Muscle Testing Left 1 Manual Muscle Testing Right 1 Manual Muscle Testing Anterior 1 Manual Muscle Testing Posterior 2 Comments Pelvic Floor Comments Poor pelvic floor strength with tendency to over use adductors/abdominals, poor endurance PT-OP-Q Treatments Start: 01/06/21 08:12 Freq: Status: Active Protocol: Document 03/10/21 08:11 AMB (Rec: 03/10/21 08:58 AMB [id number]) Therapeutic Exercises Supine Exercises 1 Supine Exercise Name supine march with PF Reps/Minutes 5 min Comments challenging Neuro Re-Education Treatment Other Activities 2 Details roll in roll out on sEMG Comments with #3 tband 1 Details sEMG Comments quick flicks and long holds PT-OP-T Assessment and Plan Start: 01/06/21 08:12 Freq: Status: Active Protocol: Document 03/10/21 08:11 AMB (Rec: 03/10/21 08:58 AMB [id number]) Physical Therapy Assessment Goals Two Impairment Pelvic floor strength Short Term Goal (STG) Carine will be able to contract her pelvic floor for 10 seconds to show improved strength. STG Duration MET Breeding Technician Goal (LTG) Carine will be able to contract her pelvic floor while lifting 20 pounds from the floor to waist height without leaking. LTG Duration MET One Impairment Continence Short Term Goal (STG) Carine will use urge suppression techniques to be able to avoid urge incontinence. STG Duration 4 weeks Breeding Technician Goal (LTG) Carine will be able to laugh/ cough without leaking urine. LTG Duration 8 weeks Assessment Summary Assessment Carine is improving with her pelvic floor strength, but continues to have urgency, despite continued instruction in behavioral management. Encouraged her to consider decrease in coffee to see if that has a positive impact on her urgency. She will benefit from continued PT to instruct her in pelvic floor strengthening progression, if urgency does not improve with caffeine reduction and continued behavior modification, may send her back to her PCP. MAx 26, avg 7.6 for quick flicks, 16.5 and 7.8 for 10 sec holds. Physical Therapy Plan Frequency and Duration Frequency of Treatment 1x/Week Duration of Treatment 8 weeks Plan of Care Start Date 03/10/21 Plan of Care End Date 04/28/21 Therapeutic Interventions Therapeutic Interventions Home Exercise Program,Manual Therapy,Neuromuscular Re- education,Self-Care/Home Management,Therapeutic Activities,Therapeutic Exercises Modalities Biofeedback,Cold Pack/Ice Massage,Electric Stimulation, Hot Packs Next Visit Focus/Plan Next Note Type Treatment Note Next Visit Plan Follow up on urgency waiting a little longer when at home to walk to the bathroom
--- NOTE | 2021-03-10 09:36 | PT.OPPOC ---
Physical, Occupational & Speech Therapy At [facility] Current Diagnoses Mixed incontinence (03/10/21) Pelvic and perineal pain (03/10/21) Visit Care Team Role Provider Type Juan Antonio Corral Primary Care Provider Non-Staff Specialty: Medical Address: [address] [place] [address], [id number] Email: Attending Provider Referring Provider Specialty: Address: Phone: Fax: Email: Plan Of Care PT-OP-T Assessment and Plan Start: 01/06/21 08:12 Freq: Status: Active Protocol: Document 03/10/21 08:11 AMB (Rec: 03/10/21 08:58 AMB [id number]) Physical Therapy Assessment Goals Two Impairment Pelvic floor strength Short Term Goal (STG) Carine will be able to contract her pelvic floor for 10 seconds to show improved strength. STG Duration MET Gas Brazer Goal (LTG) Carine will be able to contract her pelvic floor while lifting 20 pounds from the floor to waist height without leaking. LTG Duration MET One Impairment Continence Short Term Goal (STG) Carine will use urge suppression techniques to be able to avoid urge incontinence. STG Duration 4 weeks Gas Brazer Goal (LTG) Carine will be able to laugh/ cough without leaking urine. LTG Duration 8 weeks Assessment Summary Assessment Carine is improving with her pelvic floor strength, but continues to have urgency, despite continued instruction in behavioral management. Encouraged her to consider decrease in coffee to see if that has a positive impact on her urgency. She will benefit from continued PT to instruct her in pelvic floor strengthening progression, if urgency does not improve with caffeine reduction and continued behavior modification, may send her back to her PCP. MAx 26, avg 7.6 for quick flicks, 16.5 and 7.8 for 10 sec holds. Physical Therapy Plan Frequency and Duration Frequency of Treatment 1x/Week Duration of Treatment 8 weeks Plan of Care Start Date 03/10/21 Plan of Care End Date 04/28/21 Therapeutic Interventions Therapeutic Interventions Home Exercise Program,Manual Therapy,Neuromuscular Re- education,Self-Care/Home Management,Therapeutic Activities,Therapeutic Exercises Modalities Biofeedback,Cold Pack/Ice Massage,Electric Stimulation, Hot Packs Next Visit Focus/Plan Next Note Type Treatment Note Next Visit Plan Follow up on urgency waiting a little longer when at home to walk to the bathroom Plan of Care Dates Plan of Care Start Date 03/10/21 Plan of Care End Date 04/28/21 Electronically Signed by: Katherine Henson, CHAD 03/10/21 0936 Please Sign and Return: I have reviewed this Plan of Care and certify that the skilled therapy services above are required to meet the patient?s needs. Physician Signature Date Printed Name and Credentials Clinical Instructor Signature Printed Name and Credentials
--- NOTE | 2021-03-17 11:44 | PT.OTN ---
Current Diagnoses Mixed incontinence (03/17/21) Pelvic and perineal pain (03/17/21) Physical Therapy Treatment Note PT-OP-A Visit Information Start: 01/06/21 08:12 Freq: Status: Active Protocol: Document 03/17/21 08:15 AMB (Rec: 03/17/21 08:38 AMB [id number]) Out-Patient Physical Therapy Visit Information Visit Information Visit Type Treatment Note Visit Start Time 08:15 Visit Stop Time 09:00 Total Visit Minutes 45 Visit Number 8 PT-OP-B Current Condition Start: 01/06/21 08:12 Freq: Status: Active Protocol: Document 01/06/21 09:01 AMB (Rec: 01/06/21 09:13 AMB [id number]) Current Condition History of Current Condition Onset Date September 2020 Current Complaints Stress/urge urinary incontinence s/p vaginal delivery History of Current Condition with most recent 3 months ago, vaginal delivery no tearing with this delivery, no instrumet assistance, denies prolonged pushing. Urgency with leaking, ROBERTH with exercise. Laughing and coughing, squatting increases leaking, a little bit of incontinence of gas. 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 Treatment Goals Patient/Caregiver Goals Return to exercise without urinary leakage, decrease urgency. Prior Functional Status Baseline Function- ADL's Independent Baseline Function- Mobility Independent Baseline Function- Recreation/Hobbies long distance running without leaking Current Functional Impairments (Reported) Functional Limitations- Other leaking with exercise, urge, cough laugh Personal Factors Other Personal Factors That May Effect ACDF C5-7- denies previous Therapy/Recovery urinary sx before/after surgery, hx hernia, depression /anxiety PT-OP-C Subjective Start: 01/06/21 08:12 Freq: Status: Active Protocol: Document 03/17/21 08:15 AMB (Rec: 03/17/21 08:38 AMB [id number]) OP-PT Subjective Patient Comments Patient Comments Urgency is maybe improving a little PT-OP-I Pelvic Floor Start: 01/06/21 08:12 Freq: Status: Active Protocol: Document 01/06/21 09:00 AMB (Rec: 01/09/21 10:52 AMB [email or web address]) Pelvic Floor Assessment Urine Pelvic Floor Surgery No Urinary Symptoms Urge Sensation Leakage Size Medium Leakage Cause Cough,Exercise,Lifting,Sneeze, Urge Voiding Frequency 6/day Nocturia 1 Urine Pad Type Panty Liner Pelvic Clock Pelvic Clock Other no tenderness/tightness, mild scar tissue from previous tearing at perineum Perineal Descent Resting Absent Bearing Absent Contraction Ability Voluntary Contraction Weak Voluntary Relaxation Weak Manual Muscle Testing Left 1 Manual Muscle Testing Right 1 Manual Muscle Testing Anterior 1 Manual Muscle Testing Posterior 2 Comments Pelvic Floor Comments Poor pelvic floor strength with tendency to over use adductors/abdominals, poor endurance PT-OP-Q Treatments Start: 01/06/21 08:12 Freq: Status: Active Protocol: Document 03/17/21 08:15 AMB (Rec: 03/17/21 11:40 AMB [email or web address]) Therapeutic Exercises Supine Exercises 1 Supine Exercise Name supine march with PF and TA Reps/Minutes 5 min Comments challenging Standing Exercises 1 Standing Exercise Name squats Reps/Minutes 2x10 Other Exercises 2 Other Exercise Name quadruped UE Comments with PF PT-OP-T Assessment and Plan Start: 01/06/21 08:12 Freq: Status: Active Protocol: Document 03/17/21 08:15 AMB (Rec: 03/17/21 08:38 AMB [id number]) Physical Therapy Assessment Goals Two Impairment Pelvic floor strength Short Term Goal (STG) Carine will be able to contract her pelvic floor for 10 seconds to show improved strength. STG Duration MET Sales Lead Goal (LTG) Carine will be able to contract her pelvic floor while lifting 20 pounds from the floor to waist height without leaking. LTG Duration MET One Impairment Continence Short Term Goal (STG) Carine will use urge suppression techniques to be able to avoid urge incontinence. STG Duration 4 weeks Fdc Goal (LTG) Carine will be able to laugh/ cough without leaking urine. LTG Duration MET Assessment Summary Assessment Carine has improved with her stress incontinence symptoms, but continues to have urgency. She continues to have pelvic floor weakness and transversus abdominus weakness that limit her ability to run and perform a plank with good form. She has been instructed in continued exercise, and if, in a few months her urgency has not continued to improve, would recommend follow up with MD. Physical Therapy Plan Discharge Physical Therapy Discharge Reasons Plateau in Progress Discharge Comments Carine has improved with physical therapy, she has met 3/4 of her goals, but continues to have urgency. She hasn't leaked with the urgency, but did have some close calls. She has not returned to running due to a number of factors, but feels like with the urgency she would need to have a bathroom close by if she went for a run . Encouraged her to follow up with MD if this does not improve with time and exercise .
== END 2021-03-18 07:41 | disposition home or self-care (01) ==
LOC: PHYS 08:15
PROVIDERS: PCP Student in an Organized Health Care Education/Training Program
DX: R10.2 Pelvic and perineal pain (principal); N39.46 Mixed incontinence
CPT/HCPCS: 97110; 97112; 97161

== ENCOUNTER → 2021-12-10 14:49 | Outpatient (CLI) | payer OTHER, SELFPAY ==
--- NOTE | 2021-12-10 | DI.MG.S_ITS ---
BILATERAL DIGITAL SCREENING MAMMOGRAM 3D/2D WITH CAD WITH AUGMENTATION: 12/10/2021 CLINICAL: Patient presents for routine screening. S/P bilateral augmentation. Comparison is made to exams dated: 02/24/2020 [facility] and 02/24/2020 [facility]. The tissue of both breasts is heterogeneously dense. This may lower the sensitivity of mammography. Current study was also evaluated with a Computer Aided Detection (CAD) system. Bilateral breast implants are intact. No significant masses, calcifications, or other findings are seen in either breast. There has been no significant interval change. IMPRESSION: NEGATIVE There is no mammographic evidence of malignancy. A 1 year screening mammogram is recommended. This exam was interpreted at Station ID: [id number]. NOTE: For mammograms, a report in lay terms will be sent to the patient. Approximately 15% of breast malignancies will not be visualized mammographically. In the management of a palpable breast mass, a negative mammogram must not discourage biopsy of a clinically suspicious lesion. Electronically Signed By: Abbi mccain/chrissy:12/10/2021 15:42:19 letter sent: Normal Exam ACR BI-RADS Category 1: Negative [id number]
== END ==
PROVIDERS: PCP Student in an Organized Health Care Education/Training Program; Referring Provider Student in an Organized Health Care Education/Training Program; Visit Provider Student in an Organized Health Care Education/Training Program
DX: Z12.31 Encounter for screening mammogram for malignant neoplasm of breast (principal); Z98.82 Breast implant status
CPT/HCPCS: 77063; 77067

== ENCOUNTER 2023-01-09 09:17 | Observation (INO) | payer OTHER, SELFPAY ==
[2023-01-09] VITALS (12 sets, daily range): BP systolic 91–110; BP diastolic 53–68; PULSE 65–80; RESP 16–18; TEMP 36.7–36.9; O2SAT 98–100; BMI 22.8
[2023-01-09] MEDS: ONDANSETRON 4 MG/2 ML INJ IV (09:58)
[2023-01-09 10:07] LABS: Add Manual Diff / Slide Review NO; Basophils Absolute Auto 0 /uL (0-100); Basophils Percent Auto 0.6 % (0-2); Eosinophils Absolute Auto 100 /uL (0-450); Eosinophils Percent Auto 1.4 % (2-4); Hematocrit 34.4 % (36-46); Hemoglobin 11.6 g/dL (12.0-16.0); Lymphocytes Absolute Auto 2000 /uL (1100-4500); Mean Corpuscular HGB Conc 33.7 % (30-36); Mean Corpuscular Hemoglobin 30.4 PG (26-34); Mean Corpuscular Volume 90.3 fL (80-100); Monocytes Absolute Auto 300 /uL (0-900); Monocytes Percent Auto 6.3 % (3-14); Neutrophils Absolute Auto 2400 /uL (1500-7000); Neutrophils Percent Auto 49.7 % (50-75); Platelet Count 224 X10^3/uL (150-400); Red Blood Cell Count 3.81 X10^6/uL (4.0-5.2); Red Cell Distribution Width 13.7 % (11.6-14.8); White Blood Cell Count 4.8 X10^3/uL (4.5-11.0)
[2023-01-09 10:10] LABS: Alanine Aminotransferase 18 IU/L (<35); Albumin 3.6 g/dL (3.5-5.0); Albumin Globulin Ratio 1.4 (1.0-2.8); Alkaline Phosphatase 45 U/L (38-126); Aspartate Aminotransferase 22 IU/L (14-36); BUN Creatinine Ratio 21.4 (6-22); Bilirubin Total 0.4 mg/dL (0.2-1.3); Blood Urea Nitrogen 15 mg/dL (7-17); Calcium 9.6 mg/dL (8.4-10.2); Carbon Dioxide 27 mmol/L (22-32); Chloride 105 mmol/L (98-107); Estimated Glomerular Filt Rate > 60 mL/min (>60); Globulin 2.6 g/dL (1.7-4.1); Glucose 104 mg/dL (70-100); HEMOLYSIS < 15 (0-50); Lipase 56 U/L (23-300); Potassium 3.6 mmol/L (3.4-5.1); Sodium 136 mmol/L (137-145); Total Protein 6.2 g/dL (6.3-8.2)
--- NOTE | 2023-01-09 12:20 | DI.CT.S_ITS ---
PROCEDURE: CT ABDOMEN PELVIS W CON INDICATIONS: R sided abdominal pain TECHNIQUE: After the administration of intravenous contrast, axial sections acquired from the lung bases to the pubic symphysis. Coronal and sagittal reformats were performed. For radiation dose reduction, the following was used: automated exposure control, adjustment of mA and/or kV according to patient size. COMPARISON: None. FINDINGS: Image quality: Excellent. Lung bases: Unremarkable. Heart: No significant findings. ABDOMEN: Liver: Multiple small cysts versus hemangiomata. Gallbladder: Unremarkable. Biliary ducts: Unremarkable. Pancreas: Unremarkable. Spleen: Normal size, with multiple low-density lesions consistent with cysts versus hemangiomata. Adrenal Glands: Unremarkable. Kidneys and Ureters: There are bilateral small nonobstructive renal stones. There are multiple small areas of cortical loss predominantly involving the right kidney, consistent with remote insults. Stomach and Bowel: Stomach, small bowel loops, and colon are unremarkable. There is a fluid-filled appendix. It is mildly prominent, measuring 6 mm. Peritoneum: No abnormal intraperitoneal fluid. No free air. Ventral Wall: No hernias. Abdominal Nodes: No retroperitoneal or mesenteric adenopathy by size criteria. Vessels: Aorta and inferior vena cava are normal in size. PELVIS: Pelvic Organs: There is a ruptured collapsed left adnexal cyst with associated mild pelvic ascites, slightly greater than physiologic.. Bladder: Diffuse bladder wall thickening suggests cystitis.. Pelvic Nodes: No enlarged lymph nodes. Miscellaneous: No hernias are seen. Bones: Unremarkable. IMPRESSION: 1. There is a fluid-filled mildly prominent appendix measuring 6 mm. This most commonly represents a normal structure. However, early nonruptured acute appendicitis is not excluded. Suggest clinical correlation and correlation with laboratory values. 2. Diffuse bladder wall thickening is consistent with cystitis. 3. Ruptured, collapsed left ovarian cyst with associated mild ascites, slightly greater than physiologic fluid. 4. Bilateral nephrolithiasis without hydronephrosis. Dictated by: Buck Franco M.D. on 01/09/2023 at 13:25 Approved by: Buck Franco M.D. on 01/09/2023 at 13:34
--- NOTE | 2023-01-09 12:26 | ED.ABDPAIN ---
HPI - Abdominal Pain <Alexys Friedman PA-C - Last Filed: 01/09/23 18:05> General Chief Complaint: Abdominal Pain Stated Complaint: severe ABD pain/N/dizzy/bloated/problem BM T-2 Time Seen by Provider: 01/09/23 10:58 Source: patient Mode of arrival: Ambulatory History of Present Illness HPI narrative: This is a 42-year-old female presents to the emergency department due to right-sided abdominal pain onset this morning as well as nausea and vomiting with 1 episode of vomit. States that she feels somewhat constipated. Denies any diarrhea or blood in the stool. Denies hematemesis. States that she feels ?really full? when she takes a small amount of p.o. food. States that the pain is somewhat severe. Describes a sharp pain. Denies any abdominal surgeries. Denies any vaginal discharge, bleeding, or any other pelvic symptoms. Denies any fevers or any other concerning signs or symptoms. Related Data Home Medications Medication Instructions Recorded Confirmed celecoxib 200 mg capsule 200 mg PO DAILY 01/09/23 01/09/23 diclofenac sodium 100 mg 100 mg PO DAILY PRN Migraine 01/09/23 01/09/23 tablet,extended release 24 hr Headache duloxetine 20 mg capsule,delayed 40 mg PO DAILY 01/09/23 01/09/23 release gabapentin 300 mg capsule 300 mg PO TID PRN Pain (Scale 01/09/23 01/09/23 Score 4-6) rizatriptan 10 mg tablet 10 mg PO TID PRN Migraine Headache 01/09/23 01/09/23 tizanidine 2 mg tablet 4 mg PO BEDTIME PRN Migraine 01/09/23 01/09/23 Headache topiramate 25 mg tablet 25 mg PO BID 01/09/23 01/09/23 Allergies Allergy/AdvReac Type Severity Reaction Status Date / Time No Known Drug Allergies Allergy Verified 01/09/23 09:55 Review of Systems <Alexys Friedman PA-C - Last Filed: 01/09/23 18:05> Review of Systems Narrative: GENERAL: Denies chills, fatigue, malaise, fever, sweats. HEENT: Denies sinus pain, ear pain, sore throat, difficulty swallowing, dizziness. RESPIRATORY: Denies dyspnea, cough, wheezing, hemoptysis, sputum. CARDIOVASCULAR: Denies chest pain, palpitations, orthopnea, edema, GASTROINTESTINAL: Reports right-sided abdominal pain, nausea, vomiting, constipation : Denies dysuria, frequency, incontinence, hematuria, urinary retention. MUSCULOSKELETAL: denies weakness, joint pain, or bony pain SKIN: Denies rash, skin lesions, or other NEUROLOGIC: Denies weakness, headache, numbness, change in speech, confusion, seizures, incoordination. PSYCHIATRIC: No concerning psychosocial issues. 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 Blood type, Rh negative Cervical disc disorder with radiculopathy Chronic neck pain Depression Dysplasia of cervix H/O being hospitalized H/O transfusion of whole blood (~2011) LGSIL on Pap smear of cervix Lump of right breast Morbid obesity Myopia PIH ( induced hypertension) hemorrhage (~10/2011) Pre-eclampsia (~2010) PTSD (post-traumatic stress disorder) Superficial keratitis (spontaneous vaginal delivery) (~11/08/11) (spontaneous vaginal delivery) (~03/27/13) Thrombosed external hemorrhoids Surgical History (Updated 11/12/20 @ 21:14 by Alana Desouza DO) H/O inguinal hernia repair (~1989) H/O spinal fusion (~10/2017) History of tonsillectomy and adenoidectomy (~1989) Hx of breast implants, bilateral (~2013) Hx of LASIK (~2009) S/P LEEP (loop electrosurgical excision procedure) (~2009) S/P wisdom tooth extraction (~1996) Family History Mother Ovarian cyst Depression Hypertension Father Family estrangement Grandmother Ovarian cyst Vertigo Anemia Grandfather Lung cancer Cancer Grandmother Family estrangement Grandfather Family estrangement Sister Depression Social History marital status: number of children: 2 household members: spouse and children pets and animals: Yes (X 2 dogs) education level: college (BA in Business) occupational status: employed ([employer] X 18 years ) current occupational exposures/hazards: No shashi/mandaeism: Christianity special shashi needs: No Smoking Status: Current some day smoker Tobacco: How many years used: 10 quit status: quit date established (08/15/2011) second hand exposure: No alcohol intake: current substance use type: does not use Smoking Status: Current some day smoker tobacco type: vaping alcohol intake frequency: holidays/special occasions only Substance Use Type: does not use Exam <Alexys Friedman PA-C - Last Filed: 01/09/23 18:05> Narrative Exam Narrative: GENERAL: Well-developed patient, in mild distress. HEAD: Atraumatic. Normocephalic. EYES: Pupils equal round and reactive. Extraocular motions intact. No scleral icterus. No injection or drainage. ENT: Nose without bleeding, purulent drainage. Throat without erythema, tonsillar hypertrophy or exudate. Airway patent. NECK: Trachea midline. Non tender CARDIOVASCULAR: Regular rate and rhythm without murmurs, gallops, or rubs. RESPIRATORY: Clear to auscultation. Breath sounds equal bilaterally. No wheezes, rales, or rhonchi. GASTROINTESTINAL: Right lower quadrant tenderness to palpation, nondistended EXTREMITIES: No edema or joint tenderness. BACK: Nontender without deformity or crepitance. No flank tenderness. NEURO: AOx3. SKIN: No rash or erythema of visible areas Initial Vital Signs Initial Vital Signs: Vital Signs Temperature 98.4 F 01/09/23 09:44 Pulse Rate 71 01/09/23 09:44 Respiratory Rate 18 01/09/23 09:44 Blood Pressure 108/62 01/09/23 09:44 Pulse Oximetry 98 01/09/23 09:44 Oxygen Delivery Method Room Air 01/09/23 09:44 <Eloisa Bello DO - Last Filed: 01/09/23 18:42> Initial Vital Signs Initial Vital Signs: Vital Signs Temperature 98.4 F 01/09/23 09:44 Pulse Rate 71 01/09/23 09:44 Respiratory Rate 18 01/09/23 09:44 Blood Pressure 108/62 01/09/23 09:44 Pulse Oximetry 98 01/09/23 09:44 Oxygen Delivery Method Room Air 01/09/23 09:44 Course <Alexys Friedman PA-C - Last Filed: 01/09/23 18:05> Orders Ordered: ED Orders 01/09/23 12:20 CT abdomen pelvis w con Stat 01/09/23 17:34 Blood Culture Stat Type and Screen Stat Ondansetron HCl (Ondansetron 4 Mg Odt) 4 mg PO NOW PRN PRN Reason: Nausea And Vomiting Ondansetron HCl (Ondansetron 4 Mg/2 Ml Inj) 4 mg IV NOW PRN PRN Reason: Nausea And Vomiting Last Admin: 01/09/23 09:58 Dose: 4 mg Documented By: AT Discontinued Medications Sodium Chloride (Normal Saline 0.9%) 1,000 mls @ 1,000 mls/hr IV BOLUS ONE Stop: 01/09/23 13:18 Last Infusion: 01/09/23 13:49 Dose: 0 mls/hr Documented By: Admin: 01/09/23 12:50 Dose: 1,000 mls/hr Documented By: AMU Sodium Chloride (Normal Saline 0.9%) 1,000 mls @ 1,000 mls/hr IV BOLUS ONE Stop: 01/09/23 17:34 Last Infusion: 01/09/23 17:50 Dose: 0 mls/hr Documented By: Admin: 01/09/23 17:00 Dose: 1,000 mls/hr Documented By: CTS Piperacillin Sod/Tazobactam (Sod 4.5 gm/ Sodium Chloride) 100 mls @ 200 mls/hr IV NOW ONE Stop: 01/09/23 17:05 Last Admin: 01/09/23 17:59 Dose: 200 mls/hr Documented By: TLS Morphine Sulfate (Morphine 4 Mg/Ml Inj) 4 mg IV NOW ONE Stop: 01/09/23 12:20 Last Admin: 01/09/23 12:50 Dose: 4 mg Documented By: AMU Morphine Sulfate (Morphine 2 Mg/Ml Inj) 2 mg IV NOW ONE Stop: 01/09/23 16:38 Last Admin: 01/09/23 17:00 Dose: 2 mg Documented By: CTS Vital Signs Vital signs: Vital Signs - 8 hr 01/09/23 11:00 01/09/23 12:53 01/09/23 13:00 Pulse Rate 66 80 71 Blood Pressure Pulse Oximetry 99 100 100 Oxygen Delivery Method Room Air 01/09/23 13:30 01/09/23 16:58 01/09/23 16:58 Pulse Rate 71 67 Blood Pressure 110/59 L Pulse Oximetry 100 100 Oxygen Delivery Method 01/09/23 17:00 Pulse Rate 69 Blood Pressure Pulse Oximetry 100 Oxygen Delivery Method Room Air <Eloisajairo Bello, DO - Last Filed: 01/09/23 18:42> Orders Ordered: ED Orders 01/09/23 12:20 CT abdomen pelvis w con Stat 01/09/23 17:34 Blood Culture Stat Type and Screen Stat Ondansetron HCl (Ondansetron 4 Mg Odt) 4 mg PO NOW PRN PRN Reason: Nausea And Vomiting Ondansetron HCl (Ondansetron 4 Mg/2 Ml Inj) 4 mg IV NOW PRN PRN Reason: Nausea And Vomiting Last Admin: 01/09/23 09:58 Dose: 4 mg Documented By: AT Discontinued Medications Sodium Chloride (Normal Saline 0.9%) 1,000 mls @ 1,000 mls/hr IV BOLUS ONE Stop: 01/09/23 13:18 Last Infusion: 01/09/23 13:49 Dose: 0 mls/hr Documented By: Admin: 01/09/23 12:50 Dose: 1,000 mls/hr Documented By: AMU Sodium Chloride (Normal Saline 0.9%) 1,000 mls @ 1,000 mls/hr IV BOLUS ONE Stop: 01/09/23 17:34 Last Infusion: 01/09/23 17:50 Dose: 0 mls/hr Documented By: Admin: 01/09/23 17:00 Dose: 1,000 mls/hr Documented By: CTS Piperacillin Sod/Tazobactam (Sod 4.5 gm/ Sodium Chloride) 100 mls @ 200 mls/hr IV NOW ONE Stop: 01/09/23 17:05 Last Admin: 01/09/23 17:59 Dose: 200 mls/hr Documented By: TLS Morphine Sulfate (Morphine 4 Mg/Ml Inj) 4 mg IV NOW ONE Stop: 01/09/23 12:20 Last Admin: 01/09/23 12:50 Dose: 4 mg Documented By: AMU Morphine Sulfate (Morphine 2 Mg/Ml Inj) 2 mg IV NOW ONE Stop: 01/09/23 16:38 Last Admin: 01/09/23 17:00 Dose: 2 mg Documented By: CTS Vital Signs Vital signs: Vital Signs - 8 hr 01/09/23 11:00 01/09/23 12:53 01/09/23 13:00 Pulse Rate 66 80 71 Blood Pressure Pulse Oximetry 99 100 100 Oxygen Delivery Method Room Air 01/09/23 13:30 01/09/23 16:58 01/09/23 16:58 Pulse Rate 71 67 Blood Pressure 110/59 L Pulse Oximetry 100 100 Oxygen Delivery Method 01/09/23 17:00 Pulse Rate 69 Blood Pressure Pulse Oximetry 100 Oxygen Delivery Method Room Air MDM - Abdominal Pain <Alexys Friedman PA-C - Last Filed: 01/09/23 18:05> Lab Data 01/09/23 09:37 01/09/23 09:37 Labs: Lab Results 01/09/23 01/09/23 Range/Units 09:37 09:37 WBC 4.8 (4.5-11.0) X10^3/uL RBC 3.81 L (4.0-5.2) X10^6/uL Hgb 11.6 L (12.0-16.0) g/dL Hct 34.4 L (36-46) % MCV 90.3 (80-100) fL MCH 30.4 (26-34) PG MCHC 33.7 (30-36) % RDW 13.7 (11.6-14.8) % Plt Count 224 (150-400) X10^3/uL Neut % (Auto) 49.7 L (50-75) % Lymph % (Auto) 42.0 H (25-40) % [place] % (Auto) 6.3 (3-14) % Eos % (Auto) 1.4 L (2-4) % Baso % (Auto) 0.6 (0-2) % Neut # (Auto) 2400 (9904-1512) /uL Lymph # (Auto) 2000 (7480-8424) /uL [place] # (Auto) 300 (0-900) /uL Eos # (Auto) 100 (0-450) /uL Baso # (Auto) 0 (0-100) /uL Sodium 136 L (137-145) mmol/L Potassium 3.6 (3.4-5.1) mmol/L Chloride 105 (98-107) mmol/L Carbon Dioxide 27 (22-32) mmol/L BUN 15 (7-17) mg/dL Creatinine 0.70 (0.52-1.04) mg/dL Estimated GFR > 60 (>60) mL/min BUN/Creatinine Ratio 21.4 (6-22) Glucose 104 H (70-100) mg/dL Calcium 9.6 (8.4-10.2) mg/dL Total Bilirubin 0.4 (0.2-1.3) mg/dL AST 22 (14-36) IU/L ALT 18 (<35) IU/L Alkaline Phosphatase 45 (38-126) U/L Total Protein 6.2 L (6.3-8.2) g/dL Albumin 3.6 (3.5-5.0) g/dL Globulin 2.6 (1.7-4.1) g/dL Albumin/Globulin Ratio 1.4 (1.0-2.8) Lipase 56 (23-300) U/L Point of care testing: Point of Care Testing Test Results Negative Urine Dip Bedside Urine Glucose Negative Bedside Urine Bilirubin - Negative Bedside Urine Ketone - Negative Urine Specific [place] 1.010 Bedside Urine Occult Blood - Negative Bedside Urine pH 8.0 Bedside Urine Protein - Negative Bedside Urine Urobilinogen - Negative Bedside Urine Nitrite - Negative Bedside Urine Leukocytes - Negative Esterase Imaging Data CT scan - abdomen/pelvis: Radiologist's Impression: [place] [address] CT Scan Report Signed Patient: Carine Clements MR#: [id number] : 1980 Acct:[id number] Age/Sex: 42 / F Date of Service: 01/09/23 Loc: ED Accession Number: [id number] ?? Procedure: CT abdomen pelvis w con Ordering Provider: Alexys Friedman P.A-C PROCEDURE:? CT ABDOMEN PELVIS W CON ? INDICATIONS:? R sided abdominal pain ? TECHNIQUE:? After the administration of intravenous contrast, axial sections acquired from the lung bases to the pubic symphysis.? Coronal and sagittal reformats were performed.? For radiation dose reduction, the following was used:? automated exposure control, adjustment of mA and/or kV according to patient size.? ? COMPARISON:? None. ? FINDINGS:? Image quality:? Excellent.? ? Lung bases:? Unremarkable. Heart:? No significant findings. ? ABDOMEN: Liver:? Multiple small cysts versus hemangiomata.? ? Gallbladder:? Unremarkable.? ? Biliary ducts:? Unremarkable.? ? Pancreas:? Unremarkable.? ? Spleen:? Normal size, with multiple low-density lesions consistent with cysts versus hemangiomata.? ? Adrenal Glands:? Unremarkable.? ? Kidneys and Ureters:? There are bilateral small nonobstructive renal stones.? There are multiple small areas of cortical loss predominantly involving the right kidney, consistent with remote insults. ? Stomach and Bowel:? Stomach, small bowel loops, and colon are unremarkable.? There is a fluid-filled appendix.? It is mildly prominent, measuring 6 mm.? Peritoneum:? No abnormal intraperitoneal fluid.? No free air.? ? Ventral Wall: ? No hernias.? Abdominal Nodes:? No retroperitoneal or mesenteric adenopathy by size criteria.? Vessels:? Aorta and inferior vena cava are normal in size.? ? PELVIS: Pelvic Organs:? There is a ruptured collapsed left adnexal cyst with associated mild pelvic ascites, slightly greater than physiologic..? ? Bladder:? Diffuse bladder wall thickening suggests cystitis..? ? Pelvic Nodes: No enlarged lymph nodes.? Miscellaneous: No hernias are seen. ? ? ? Bones:? Unremarkable.? IMPRESSION:? ? 1. There is a fluid-filled mildly prominent appendix measuring 6 mm.? This most commonly represents a normal structure.? However, early nonruptured acute appendicitis is not excluded.? Suggest clinical correlation and correlation with laboratory values. ? 2. Diffuse bladder wall thickening is consistent with cystitis. ? 3. Ruptured, collapsed left ovarian cyst with associated mild ascites, slightly greater than physiologic fluid. ? 4. Bilateral nephrolithiasis without hydronephrosis.? ? ? Dictated by: Buck Franco M.D. on 01/09/2023 at 13:25 ? ? Approved by: Buck Franco M.D. on 01/09/2023 at 13:34 ? MDM Narrative Medical decision making narrative: MDM * differential diagnosis includes but not limited to appendicitis, colitis, gastroenteritis, ovarian torsion, ovarian cyst * Prior records reviewed: Patient has not been here for similar complaints in the past * My lab interpretation: Labwork shows no evidence of leukocytosis * My imgaing interpretation: CT showed a fluid-filled mildly prominent appendix measuring 6 mm. This was discussed with Dr. Mcgovern as below. Patient also had a ruptured a collapsed left ovarian cyst as well as with diffuse bladder wall thickening consistent with cystitis of the patient did not have any UTI symptoms and urinalysis showed no evidence of UTI. * Clinical Decision Rules/Scores evaluated: None * Independent discussions with: None ED Course: This is a 42-year-old female presents emergency department due to acute onset right lower quadrant pain with nausea and vomiting. CT abdomen and pelvis showed the findings as above. These findings were discussed with Dr. Mcgovern who recommended admission for surgery tomorrow for appendectomy. Patient was admitted given Zosyn without complications. Shared Decision Making: Discussed plan with patient who is comfortable with plan Social Considerations: None Disposition: Admitted to General surgery <Eloisa Bello, - Last Filed: 01/09/23 18:42> Lab Data Labs: Lab Results 01/09/23 01/09/23 Range/Units 09:37 09:37 WBC 4.8 (4.5-11.0) X10^3/uL RBC 3.81 L (4.0-5.2) X10^6/uL Hgb 11.6 L (12.0-16.0) g/dL Hct 34.4 L (36-46) % MCV 90.3 (80-100) fL MCH 30.4 (26-34) PG MCHC 33.7 (30-36) % RDW 13.7 (11.6-14.8) % Plt Count 224 (150-400) X10^3/uL Neut % (Auto) 49.7 L (50-75) % Lymph % (Auto) 42.0 H (25-40) % [place] % (Auto) 6.3 (3-14) % Eos % (Auto) 1.4 L (2-4) % Baso % (Auto) 0.6 (0-2) % Neut # (Auto) 2400 (7349-7318) /uL Lymph # (Auto) 2000 (4745-8111) /uL [place] # (Auto) 300 (0-900) /uL Eos # (Auto) 100 (0-450) /uL Baso # (Auto) 0 (0-100) /uL Sodium 136 L (137-145) mmol/L Potassium 3.6 (3.4-5.1) mmol/L Chloride 105 (98-107) mmol/L Carbon Dioxide 27 (22-32) mmol/L BUN 15 (7-17) mg/dL Creatinine 0.70 (0.52-1.04) mg/dL Estimated GFR > 60 (>60) mL/min BUN/Creatinine Ratio 21.4 (6-22) Glucose 104 H (70-100) mg/dL Calcium 9.6 (8.4-10.2) mg/dL Total Bilirubin 0.4 (0.2-1.3) mg/dL AST 22 (14-36) IU/L ALT 18 (<35) IU/L Alkaline Phosphatase 45 (38-126) U/L Total Protein 6.2 L (6.3-8.2) g/dL Albumin 3.6 (3.5-5.0) g/dL Globulin 2.6 (1.7-4.1) g/dL Albumin/Globulin Ratio 1.4 (1.0-2.8) Lipase 56 (23-300) U/L Point of care testing: Point of Care Testing Test Results Negative Urine Dip Bedside Urine Glucose Negative Bedside Urine Bilirubin - Negative Bedside Urine Ketone - Negative Urine Specific [place] 1.010 Bedside Urine Occult Blood - Negative Bedside Urine pH 8.0 Bedside Urine Protein - Negative Bedside Urine Urobilinogen - Negative Bedside Urine Nitrite - Negative Bedside Urine Leukocytes - Negative Esterase Discharge Plan Departure Patient Disposition: Admitted As Inpatient Clinical Impression: Acute right lower quadrant pain Admit Date/Time: 01/09/23 17:04 Admit Provider: Saul Mcgovern <Eloisa Bello, - Last Filed: 01/09/23 18:42> Cosign ED Attending Cosdarielaature Attestation: I was immediately available in the department for consultation. Documentation has been reviewed, patient case was discussed including labs imaging. Patient's pain after discussion is localized to RLQ and suspicious for appendicitis. Consultation with general surgery and patient accepted under Dr. Mcgovern.
[2023-01-09] MEDS: MORPHINE 4 MG/ML INJ IV (12:50)
[2023-01-09] MEDS: SODIUM CHLORIDE 0.9% 1,000 ML 1000 ML IV ×2 (12:50→17:00)
[2023-01-09] MEDS: MORPHINE 2 MG/ML INJ IV (17:00)
[2023-01-09 17:40] LABS: COVID19 -Nasal RAPID Negative (Negative)
[2023-01-09] MEDS: PIPERACILLIN/TAZO 4.5 GM in SODIUM CHLORIDE 0.9% 100 ML IV ×2 (17:59→22:40)
[2023-01-09 18:50] LABS: C-Reactive Protein Quant < 0.5 mg/dL (<1.0)
[2023-01-09] MEDS: SODIUM CHLORIDE 0.9% 1,000 ML 100 ML IV (20:06)
[2023-01-09] MEDS: HYDROMORPHONE 0.5 MG INJ IV (22:40)
[2023-01-10] VITALS (10 sets, daily range): BP systolic 92–114; BP diastolic 53–71; PULSE 57–87; RESP 11–22; TEMP 36.4–36.8; O2SAT 96–100; BMI 22.8
--- NOTE | 2023-01-10 | PATH_ITS ---
[facility] Accession Number: [id number] No. of containers..01 Tissue . 01 Material submitted: . appendix - APPENDIX . 01 Diagnosis: Appendix, Appendectomy: Acute appendicitis. [facility] 01/16/2023 1001 Local . 01 Electronically signed: . Dolly Henson MD, Pathologist NPI- [id number] . 01 Gross description: . The specimen is received in formalin labeled with the patient's name, , and appendix consists of a augustine vermiform appendix measuring 4.8 cm in length by 0.8 cm in diameter with augustine intact serosa and dilated vasculature with a small amount of attached mesoappendix extending out to 1.4 cm. The surgical margin is received closed with a suture, is inked blue, and sectioning reveals a pinpoint lumen filled with a small amount of semi-solid material and the lumen averages 0.1 cm in diameter. The williamson are augustine and thickened averaging 0.4 cm thick with no lesions or perforations grossly identified. Store Detective sections to include one-half of the bisected distal tip, surgical margin, and cross-sections are submitted in cassette A1. ([id number]) /MRV 01/12/2023 1225 Local . 01 Pathologist provided ICD-10: K35.80 . 01 CPT . 396350 Specimen Comment: A courtesy copy of this report has been sent to [phone] Performed at: [facility] [address] [place] [address] [id number] MD Al Guzman MD Phone: [phone]
[2023-01-10] MEDS: PIPERACILLIN/TAZO 4.5 GM in SODIUM CHLORIDE 0.9% 100 ML IV (05:19)
[2023-01-10] MEDS: SODIUM CHLORIDE 0.9% 1,000 ML 100 ML IV (05:20)
[2023-01-10] MEDS: HYDROMORPHONE 0.5 MG INJ IV (08:48)
--- NOTE | 2023-01-10 09:19 | CM.DANOTE ---
Discharge Planning/Care Management CM Discharge Assessment Start: 01/10/23 09:06 Freq: Status: Active Protocol: Document 01/10/23 09:06 JOANN (Rec: 01/10/23 09:19 JOANN [id number]) Discharge Planning Assessment Assigned [employer] C[employer]aker COOKIE Alfonso DPOA/Assigned Designee Name Sriram Clements, spouse Contact Information [phone] Advance Directives? Yes Advance Directives on File No: full code History Provided By Patient,Family Member, Significant Other Prior Living Arrangements House Household Members spouse,children Comment 10,9, 2 yo Type of transporation used prior to Drives own vehicle admit Comment Works full-time for [employer], active duty? Independent with ADL's Yes Is patient alert and oriented? Yes Barriers to Discharge No Comment 42 yo female resident of [place] arrives with severe abd pain and expected to have appendectomy with Dr Mcgovern today Introduced self and role to patient, her Sriram and sister Yue. Patient lives at home w/spouse and 3 daughters- 10,9 and 2 yo. Patient has no current questions or concerns and plans to return home to supportive family when medically discharged No needs identified from this CM team currently Discharge Plan Home Transportation Arrangement Family Referrals Initiated None needed Whiteboard Updated in Patient Room with Yes name and ext. # of Rental Bo[employer] Caretaker
--- NOTE | 2023-01-10 10:13 | PM.HP.1 ---
History of Present Illness History of Present Illness Date Patient Seen: 01/10/23 Time Patient Seen: 10:13 Chief complaint: severe ABD pain/N/dizzy/bloated/problem BM T-2 Narrative: Carine is a 42-year-old woman who presented to the ER last night complaining of several hours of abdominal pain that started around the umbilicus and migrated to the right lower quadrant. A CT scan was performed in the ER which showed a mildly prominent appendix. She was also noted to have some thickening of the bladder wall but her urine was negative clean. She was started on antibiotics in the ER last night. Her white count was normal. 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 Blood type, Rh negative Cervical disc disorder with radiculopathy Chronic neck pain Depression Dysplasia of cervix H/O being hospitalized H/O transfusion of whole blood (~2011) LGSIL on Pap smear of cervix Lump of right breast Morbid obesity Myopia PIH ( induced hypertension) hemorrhage (~10/2011) Pre-eclampsia (~2010) PTSD (post-traumatic stress disorder) Superficial keratitis (spontaneous vaginal delivery) (~11/08/11) (spontaneous vaginal delivery) (~03/27/13) Thrombosed external hemorrhoids Surgical History (Updated 11/12/20 @ 21:14 by Alana Desouza DO) H/O inguinal hernia repair (~1989) H/O spinal fusion (~10/2017) History of tonsillectomy and adenoidectomy (~1989) Hx of breast implants, bilateral (~2013) Hx of LASIK (~2009) S/P LEEP (loop electrosurgical excision procedure) (~2009) S/P wisdom tooth extraction (~1996) Family & Social History Family History Mother Ovarian cyst Depression Hypertension Father Family estrangement Grandmother Ovarian cyst Vertigo Anemia Grandfather Lung cancer Cancer Grandmother Family estrangement Grandfather Family estrangement Sister Depression Social History: household members spouse,children Prior Living Arrangements House Safety & Behavioral: Feels Safe in Current Yes Environment Been Physically Hurt or No Threatened By a Person Tobacco & Substance use: Tobacco type e-cigarettes Smoking Status Current some day smoker alcohol intake current alcohol intake frequency a few times a month Substance Use Type does not use Meds Home Medications and Allergies Home Medications Medication Instructions Recorded Confirmed Type celecoxib 200 mg capsule 200 mg PO DAILY 01/09/23 01/09/23 History diclofenac sodium 100 mg 100 mg PO DAILY PRN Migraine 01/09/23 01/09/23 History tablet,extended release 24 hr Headache duloxetine 20 mg capsule,delayed 40 mg PO DAILY 01/09/23 01/09/23 History release gabapentin 300 mg capsule 300 mg PO TID PRN Pain (Scale 01/09/23 01/09/23 History Score 4-6) rizatriptan 10 mg tablet 10 mg PO TID PRN Migraine Headache 01/09/23 01/09/23 History tizanidine 2 mg tablet 4 mg PO BEDTIME PRN Migraine 01/09/23 01/09/23 History Headache topiramate 25 mg tablet 25 mg PO BID 01/09/23 01/09/23 History Allergies Allergy/AdvReac Type Severity Reaction Status Date / Time No Known Drug Allergies Allergy Verified 01/09/23 09:55 Exam Vital Signs (past 8 hours): - 01/10/23 03:00 01/10/23 05:40 01/10/23 08:00 Temperature 98.3 F 98.3 F 98.1 F Pulse Rate 70 57 L 67 Respiratory Rate 17 18 17 Blood Pressure 96/55 L 92/53 L 101/61 Pulse Oximetry 100 100 100 Oxygen Delivery Method Oxygen Flow Rate 0 0 01/10/23 08:59 Temperature Pulse Rate Respiratory Rate Blood Pressure Pulse Oximetry Oxygen Delivery Method Room Air Oxygen Flow Rate Oxygen Delivery Method Room Air Oxygen Flow Rate 0 Const General: healthy appearing Other: Mildly tender to palpation in the right lower quadrant without anayeli peritoneal findings Objective Labs 01/09/23 09:37 01/09/23 09:37 Labs: Laboratory Results - last 24 hr 01/09/23 01/09/23 01/09/23 09:37 17:10 17:34 C-Reactive Protein < 0.5 SARS-CoV-2 (PCR) Negative Blood Type O Negative Antibody Screen Negative Assessment & Plan Assessment and plan (1) Appendicitis: Status: Acute Plan She has a little bit of a borderline case for appendicitis. I explained the process of laparoscopic appendectomy and we specifically talked about possibility that we do not make her better by taking her appendix out. In that case I would probably have her see urology as an outpatient about her bladder thickening. She would like to proceed with surgery today. Quality VTE Deep Vein Thrombosis/Pulmonary Embolism Present on Admission: No
--- NOTE | 2023-01-10 13:20 | PC.NURSE ---
Kusum from preop called to get report on patient, patient picked up for surgery.
--- NOTE | 2023-01-10 13:35 | SUR.OPER ---
Supine on padded OR bed, head on pillow, arms secured on padded arm boards at <90 degrees abduction, legs uncrossed, safety belt at thigh, tape over blanket over lower legs.
[2023-01-10] MEDS: LACTATED RINGERS 1,000 ML 100 ML IV ×2 (13:40→15:09)
[2023-01-10] MEDS: BUPIVACAINE 0.25% (PF) 30 ML, EPINEPHrine 0.15 MG INJ (14:19)
--- NOTE | 2023-01-10 14:57 | P.OP_ITS ---
Operative Date/Time/Diagnoses Date of procedure: 01/10/23 Time of procedure: 14:57 Pre-op diagnosis: Acute appendicitis Post-op diagnosis: same Procedure & Clinicians Procedure: Laparoscopic appendectomy Same procedure as scheduled: Yes Surgeon: Saul Mcgovern Operative Notes Procedure in detail: Procedure in detail: The patient was on IV antibiotics. The patient was brought to the operating room, placed on the table in the supine position and general endotracheal anesthesia was induced. A time-out was performed. The abdomen was prepped and draped in the usual fashion. After injection of 0.25% Marcaine a 1 cm infraumbilical incision was created with a 15 blade scalpel. The umbilical stalk was grasped with a Syd clamp to elevate the abdominal wall. The infraumbilical midline fascia was cleared over 1 cm and the fascia was scored with cautery. The peritoneum was pierced with a Peon clamp. The Elvira port was placed and the abdomen was insufflated to 15 mmHg. The camera was inserted and there was no evidence of any injury from the entry. The patient became somewhat bradycardic and the abdomen was desufflated. After some glycopyrrolate her heart rate normalized and we reinsufflated the peritoneum to 12 mm Hg. Next, 5 mm ports were placed in the suprapubic and left lower quadrant positions under direct vision. The patient was placed in Trendelenburg with the right- side of the table elevated. The terminal ileum was swept away from the cecum and the appendix was visualized. The appendix did not appear inflamed but was distended at the distal tip. The mesoappendix was divided with the power seal to the base of the appendix. Two PDS Endoloops were placed at the base and a 3rd endoloop was placed about a cm distally and the appendix was divided sharply. The specimen was placed in a Endo-Catch bag. A small amount of clear fluid with suctioned from the pelvis. The table was flattened and the terminal ileum and omentum were allowed to slide in over the appendiceal stump. Finally, the 5 mm ports were removed under direct vision. The pneumoperitoneum was released and the Elvira port was removed followed by the Endo-Catch bag. Additional local was injected into the fascia and the infraumbilical incision was closed with 2 interrupted 2-0 Vicryl sutures. The skin incisions were closed with 4 Monocryl. Steri-Strips were applied followed by Band-Aids. EBL: 5 mL Specimen: Appendix Post-operative Condition: stable Disposition: PACU
[2023-01-10] MEDS: ONDANSETRON 4 MG/2 ML INJ IV (15:02)
[2023-01-10] MEDS: HYDROMORPHONE 2 MG INJ IV (15:06)
== END 2023-01-10 18:40 | disposition home or self-care (01) ==
LOC: ED 12:02 → AC 17:13
PROVIDERS: Emergency Medicine; Admitting Provider Surgery; Emergency Provider Physician Assistant Medical; PCP Student in an Organized Health Care Education/Training Program; Referring Provider Physician Assistant Medical; Visit Provider Surgery
PROC: 0DTJ4ZZ Resection of Appendix, Percutaneous Endoscopic Approach (ICD-10-PCS; CPT 44970; principal; 2023-01-10 16:15)
DX: K35.80 Unspecified acute appendicitis (principal); Z20.822 Contact with and (suspected) exposure to COVID-19
CPT/HCPCS: 44970; 36415; 74177; 80053; 81003; 81025; 83690; 85025; 86140; 86850; 86900; 86901; 87040; 87635; 96361; 96365; 96366; 96375; 96376; 99222; 99284; C9803; G0378; J0171; J0330; J1100; J1170; J1885; J2250; J2270; J2405; J2543; J2704; J3010; Q9967

== ENCOUNTER → 2023-01-26 14:55 | Outpatient (CLI) | payer OTHER, SELFPAY ==
[2023-01-09 17:09] VITALS: BMI 22.8
--- NOTE | 2023-01-26 | DI.ECHO.S_ITS ---
Version: 1 Study ID: [id number] [place] [address] Name: MICHAEL JON Study Date: 01/26/2023, 3: 19 PM HR: 68 bpm : 1980 BP: 115 / 62 mmHg Gender: Female Height: 68 in Age: 42 Years Weight: 150 lb BSA: 1.81 mA? Ordering: VICKI OTT Referring: VICKI OTT Clinician: INÉS LEYVA Reason For Study: PRESYNCOPE History: Summary Statements Normal sinus rhythm. Normal LV size, wall thickness, wall motion and LV systolic function. EF is 55-60%. Normal chamber sizes. No significant valvular abnormalities. No prior study available for comparison. Procedure: A two-dimensional transthoracic echocardiogram with color flow and Doppler was performed. The study quality was technically adequate. There is no prior echocardiogram noted for this patient. The patient was in normal sinus rhythm during the exam. Left Ventricle: Left ventricular systolic function is normal. The ejection fraction is estimated to be 55-60%. The left ventricle is normal in size and wall thickness. Right Ventricle: The right ventricle is normal in size and function. Atria: There is no Doppler evidence for an interatrial shunt. Both atria are normal in size. Mitral Valve: There is trace mitral regurgitation. The mitral valve is normal in structure and function. Aortic Valve: No aortic regurgitation is present. There is no aortic valve stenosis. The aortic valve is trileaflet. The aortic valve opens well. Tricuspid Valve: There is trace tricuspid regurgitation. Pulmonary artery pressures cannot be estimated because of the lack of a measurable TR jet velocity. The tricuspid valve is normal in structure and function. Pulmonic Valve: There is mild pulmonic regurgitation. The pulmonic valve leaflets are thin and pliable; valve motion is normal. Great Vessels: The ascending aorta is normal in size. The aortic root is normal size. The IVC is of normal diameter and collapses greater than 50% with a sniff. This suggests a low right atrial pressure of 3 mm Hg. Pericardium/ Pleura: There is no pericardial effusion. There is no pleural effusion. 2D and M-Mode Measurements and Calculations LVIDd: 5.2 cm LVOT diam: 2.18 cm LVIDs: 3.5 cm Ao root diam: 2.6 cm IVSd: 0.68 cm asc Aorta Diam: 3.3 cm LVPWd: 0.60 cm Ao Arch Diam (Prox Trans): 2.5 cm LV aly. diameter/BSA (cm/m^2): 2.9 LV sys. diameter/BSA (cm/m^2): 1.93 TAPSE: 2.6 cm LA A4 area: 15.3 laborer syrup machine? IVC diam: 1.79 cm LA A2 area: 13.3 laborer syrup machine? RA area: 12.8 laborer syrup machine? LA length (vol): 4.4 cm RA long axis: 4.1 cm LA vol: 39.2 ml RA vol: 33.8 ml LA vol index: 21.7 ml/mA? RA : 18.7 ml/mA? Doppler Measurements and Calculations Ao V2 max: 111.1 cm/sec LVOT Max Jeff: 104.2 cm/sec Ao V2 mean: 83.9 cm/sec LV V1 max P.3 mmHg Ao V2 VTI: 23.3 cm LV V1 VTI: 21.6 cm Ao max P.9 mmHg SV(LVOT): 80.8 ml Ao mean P.0 mmHg YVES(I,D): 3.5 laborer syrup machine? YVES(V,D): 3.5 laborer syrup machine? YVES indexed to BSA (cm^2/m^2): 1.92 sev ratio: 0.93 MV E max jeff: 70.7 cm/sec MV dec time: 0.20 sec MV A max jeff: 43.2 cm/sec MV E/A: 1.64 Med Peak E' Jeff: 12.9 cm/sec Lat Peak E' Jeff: 18.3 cm/sec E/e' average: 4.7 TR max jeff: 191.2 cm/sec PA mean P.61 mmHg TR max P.6 mmHg PA V2 max: 83.9 cm/sec Electronically signed by: Carri Gradna M.D. 01/27/2023, 3: 01 AM
== END ==
PROVIDERS: PCP Student in an Organized Health Care Education/Training Program; Referring Provider Student in an Organized Health Care Education/Training Program; Visit Provider Student in an Organized Health Care Education/Training Program
DX: R55 Syncope and collapse (principal)
CPT/HCPCS: 93306

== ENCOUNTER 2023-04-24 12:43 | Emergency (ER) | payer OTHER, SELFPAY ==
[2023-01-09 17:09] VITALS: BMI 22.8
[2023-04-24 12:45] VITALS: BP 121/81; PULSE 67; RESP 15; TEMP 36.9; O2SAT 99; BMI 22.8
[2023-04-24] MEDS: ONDANSETRON 4 MG ODT SL (12:53)
[2023-04-24 13:32] LABS: Amorphous Sediment Urine 1+; Bacteria Urine Moderate (10-30); RBC Urine 0-1/HPF (0-5/HPF); Squamous Epithelial Cell Urine 5-10 /HPF (0-5/HPF); WBC Urine 5-10/HPF (0-5/HPF)
[2023-04-24 13:33] LABS: Culture Indicated Urine Specimen Cultured
--- NOTE | 2023-04-24 13:35 | ED_ITS ---
HPI - Female Genitourinary <Humaira Rogers PA-C - Last Filed: 04/24/23 18:00> General Chief complaint: Urogenital-Female Stated complaint: V/T-1/lower back pain Time Seen by Provider: 04/24/23 13:06 Source: patient Mode of arrival: Ambulatory History of Present Illness HPI Narrative: Patient is a 42-year-old female presenting for evaluation of lower back pain, chills and UTI symptoms x6 days. She reports that she had vomiting starting yesterday. She denies any lower abdominal pain and states that her burning sensation is still present with urination but it feels a little bit better the last two days. She reports the burning with urination is worse in the morning in the evening but improves during the day. She denies any history of previous kidney issues except a kidney infection back in her teens. She reports that today she noticed some back pain occurring worse on the left than the right with a dull sensation of aching across her lower back. She reports that when she was diagnosed with a appendicitis back in December, she was told she had kidney stones which were nonobstructive and asymptomatic at that time. She had follow up with urologist week and a half ago was unable to review images, so no tx was done. She says that her urine is cloudy, but she states it has been cloudy since December when her appendix was removed. She denies any frequency or urgency nor blood in urine. UA did not show blood in urine but did show some leukocytes. She reports continued discomfort with nausea. She reports she is only had 2 urinary tract infections in the last several years. Related Data Home Medications Medication Instructions Recorded Confirmed celecoxib 200 mg capsule 200 mg PO DAILY 01/09/23 01/09/23 diclofenac sodium 100 mg 100 mg PO DAILY PRN Migraine 01/09/23 01/09/23 tablet,extended release 24 hr Headache duloxetine 20 mg capsule,delayed 40 mg PO DAILY 01/09/23 01/09/23 release gabapentin 300 mg capsule 300 mg PO TID PRN Pain (Scale 01/09/23 01/09/23 Score 4-6) rizatriptan 10 mg tablet 10 mg PO TID PRN Migraine Headache 01/09/23 01/09/23 tizanidine 2 mg tablet 4 mg PO BEDTIME PRN Migraine 01/09/23 01/09/23 Headache topiramate 25 mg tablet 25 mg PO BID 01/09/23 01/09/23 Previous Rx's Medication Instructions Recorded hydrocodone 5 mg-acetaminophen 325 1 tab PO Q8H PRN pain #10 tabs 01/10/23 mg tablet sulfamethoxazole 800 1 tab PO Q12H #14 tabs 04/24/23 mg-trimethoprim 160 mg tablet (Bactrim DS) Allergies Allergy/AdvReac Type Severity Reaction Status Date / Time No Known Drug Allergies Allergy Verified 04/24/23 12:49 Review of Systems <Humaira Rogers PA-C - Last Filed: 04/24/23 18:00> Constitutional Constitutional: Reports system reviewed and no additional complaints, except as documented, Reports fatigue and Denies fever(s) Gastrointestinal Gastrointestinal: Denies abdominal pain, Denies constipation, Reports loose stools, Reports nausea and Reports vomiting Genitourinary Genitourinary: Reports as per HPI Musculoskeletal Musculoskeletal: Reports back pain and Reports myalgias Endocrine Endocrine: Reports fatigue Patient History <Humaira Rogers PA-C - Last Filed: 04/24/23 18:00> Medical History (Updated 04/24/23 @ 14:07 by Humaira Rogers PA-C) AMA (advanced maternal age) multigravida 35+ Astigmatism 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 Blood type, Rh negative Cervical disc disorder with radiculopathy Chronic neck pain Depression Dysplasia of cervix H/O being hospitalized H/O transfusion of whole blood (~2011) LGSIL on Pap smear of cervix Lump of right breast Morbid obesity Myopia PIH ( induced hypertension) hemorrhage (~10/2011) Pre-eclampsia (~2010) PTSD (post-traumatic stress disorder) Superficial keratitis (spontaneous vaginal delivery) (~11/08/11) (spontaneous vaginal delivery) (~03/27/13) Thrombosed external hemorrhoids Surgical History (Updated 11/12/20 @ 21:14 by Alana Desouza DO) H/O inguinal hernia repair (~1989) H/O spinal fusion (~10/2017) History of tonsillectomy and adenoidectomy (~1989) Hx of breast implants, bilateral (~2013) Hx of LASIK (~2009) S/P LEEP (loop electrosurgical excision procedure) (~2009) S/P wisdom tooth extraction (~1996) Family History Mother Ovarian cyst Depression Hypertension Father Family estrangement Grandmother Ovarian cyst Vertigo Anemia Grandfather Lung cancer Cancer Grandmother Family estrangement Grandfather Family estrangement Sister Depression tobacco type: vaping alcohol intake frequency: a few times a month Substance Use Type: does not use Exam <Humaira Rogers PA-C - Last Filed: 04/24/23 18:00> Initial Vital Signs Initial Vital Signs: Vital Signs Temperature 98.5 F 04/24/23 12:45 Pulse Rate 67 04/24/23 12:45 Respiratory Rate 15 04/24/23 12:45 Blood Pressure 121/81 04/24/23 12:45 Pulse Oximetry 99 04/24/23 12:45 Oxygen Delivery Method Room Air 04/24/23 12:45 GENERAL: 42 year old patient appears stated age. Well-developed patient, in no acute distress. HEAD: Atraumatic. Normocephalic. EYES: Pupils equal round No scleral icterus. No injection or drainage. CARDIOVASCULAR: Regular rate and rhythm without murmurs, gallops, or rubs. RESPIRATORY: Clear to auscultation. Breath sounds equal bilaterally. No wheezes, rales, or rhonchi. GASTROINTESTINAL: Abdomen soft, non-tender, nondistended. Bilateral CVA tenderness, worse on left than on right BACK: Nontender without deformity or crepitance. Flank tenderness positive, worse on left than on right NEURO: AOx3. SKIN: No rash or erythema of visible areas <Eloisa Bello DO - Last Filed: 04/25/23 18:09> Initial Vital Signs Initial Vital Signs: Vital Signs Temperature 98.5 F 04/24/23 12:45 Pulse Rate 67 04/24/23 12:45 Respiratory Rate 15 04/24/23 12:45 Blood Pressure 121/81 04/24/23 12:45 Pulse Oximetry 99 04/24/23 12:45 Oxygen Delivery Method Room Air 04/24/23 12:45 Course <AMANDA Christopher Last Filed: 04/24/23 18:00> Orders Ordered: Discontinued Medications Ciprofloxacin (Ciprofloxacin 250 Mg Tablet) 500 mg PO NOW ONE Stop: 04/24/23 13:55 Last Admin: 04/24/23 14:44 Dose: Not Given Documented By: BENITO Sodium Chloride (Normal Saline 0.9%) 1,000 mls @ 1,000 mls/hr IV BOLUS ONE Stop: 04/24/23 15:22 Last Infusion: 04/24/23 15:47 Dose: 0 mls/hr Documented By: Admin: 04/24/23 14:32 Dose: 1,000 mls/hr Documented By: BENITO Ceftriaxone Sodium 1,000 mg/ (Sodium Chloride) 100 mls @ 200 mls/hr IV NOW ONE Stop: 04/24/23 14:45 Last Infusion: 04/24/23 15:48 Dose: 0 mls/hr Documented By: Admin: 04/24/23 14:57 Dose: 200 mls/hr Documented By: KULDIP Ketorolac Tromethamine (Ketorolac 30 Mg/Ml Vial) 15 mg IV NOW ONE Stop: 04/24/23 14:24 Last Admin: 04/24/23 14:31 Dose: 15 mg Documented By: BENITO Ondansetron HCl (Ondansetron 4 Mg Odt) 4 mg SL NOW PRN PRN Reason: Nausea And Vomiting Last Admin: 04/24/23 12:53 Dose: 4 mg Documented By: BENITO Ondansetron HCl (Ondansetron 4 Mg/2 Ml Inj) 4 mg IV NOW ONE Stop: 04/24/23 14:54 Last Admin: 04/24/23 14:58 Dose: 4 mg Documented By: KULDIP Vital Signs Vital signs: Vital Signs - 8 hr 04/24/23 12:45 04/24/23 16:30 Temperature 98.5 F 97.6 F Pulse Rate 67 62 Respiratory Rate 15 20 Blood Pressure 121/81 115/77 Pulse Oximetry 99 98 Oxygen Delivery Method Room Air Room Air <Eloisa Bello DO - Last Filed: 04/25/23 18:09> Orders Ordered: Discontinued Medications Ciprofloxacin (Ciprofloxacin 250 Mg Tablet) 500 mg PO NOW ONE Stop: 04/24/23 13:55 Last Admin: 04/24/23 14:44 Dose: Not Given Documented By: BENITO Sodium Chloride (Normal Saline 0.9%) 1,000 mls @ 1,000 mls/hr IV BOLUS ONE Stop: 04/24/23 15:22 Last Infusion: 04/24/23 15:47 Dose: 0 mls/hr Documented By: Admin: 04/24/23 14:32 Dose: 1,000 mls/hr Documented By: BENITO Ceftriaxone Sodium 1,000 mg/ (Sodium Chloride) 100 mls @ 200 mls/hr IV NOW ONE Stop: 04/24/23 14:45 Last Infusion: 04/24/23 15:48 Dose: 0 mls/hr Documented By: Admin: 04/24/23 14:57 Dose: 200 mls/hr Documented By: KULDIP Ketorolac Tromethamine (Ketorolac 30 Mg/Ml Vial) 15 mg IV NOW ONE Stop: 04/24/23 14:24 Last Admin: 04/24/23 14:31 Dose: 15 mg Documented By: BENITO Ondansetron HCl (Ondansetron 4 Mg Odt) 4 mg SL NOW PRN PRN Reason: Nausea And Vomiting Last Admin: 04/24/23 12:53 Dose: 4 mg Documented By: BENITO Ondansetron HCl (Ondansetron 4 Mg/2 Ml Inj) 4 mg IV NOW ONE Stop: 04/24/23 14:54 Last Admin: 04/24/23 14:58 Dose: 4 mg Documented By: KULDIP Vital Signs Vital signs: Vital Signs - 8 hr 04/24/23 12:45 04/24/23 16:30 Temperature 98.5 F 97.6 F Pulse Rate 67 62 Respiratory Rate 15 20 Blood Pressure 121/81 115/77 Pulse Oximetry 99 98 Oxygen Delivery Method Room Air Room Air MDM - Female Genitourinary <Humaira Rogers PA-C - Last Filed: 04/24/23 18:00> Lab Data 04/24/23 14:20 04/24/23 14:20 Labs: Lab Results 04/24/23 04/24/23 04/24/23 Range/Units 13:04 14:20 14:20 WBC 5.7 (4.5-11.0) X10^3/uL RBC 4.01 (4.0-5.2) X10^6/uL Hgb 12.3 (12.0-16.0) g/dL Hct 36.4 (36-46) % MCV 90.8 (80-100) fL MCH 30.6 (26-34) PG MCHC 33.7 (30-36) % RDW 13.5 (11.6-14.8) % Plt Count 280 (150-400) X10^3/uL Neut % (Auto) 51.9 (50-75) % Lymph % (Auto) 39.5 (25-40) % [place] % (Auto) 6.8 (3-14) % Eos % (Auto) 1.2 L (2-4) % Baso % (Auto) 0.6 (0-2) % Neut # (Auto) 3000 (0251-4984) /uL Lymph # (Auto) 2200 (3589-6689) /uL [place] # (Auto) 400 (0-900) /uL Eos # (Auto) 100 (0-450) /uL Baso # (Auto) 0 (0-100) /uL Sodium 137 (137-145) mmol/L Potassium 3.6 (3.4-5.1) mmol/L Chloride 106 (98-107) mmol/L Carbon Dioxide 28 (22-32) mmol/L BUN 10 (7-17) mg/dL Creatinine 0.68 (0.52-1.04) mg/dL Estimated GFR > 60 (>60) mL/min BUN/Creatinine Ratio 14.7 (6-22) Glucose 97 (70-100) mg/dL Calcium 9.2 (8.4-10.2) mg/dL Total Bilirubin 0.6 (0.2-1.3) mg/dL AST 32 (14-36) IU/L ALT 21 (<35) IU/L Alkaline Phosphatase 75 (38-126) U/L Total Protein 6.6 (6.3-8.2) g/dL Albumin 3.8 (3.5-5.0) g/dL Globulin 2.8 (1.7-4.1) g/dL Albumin/Globulin Ratio 1.4 (1.0-2.8) Lipase 178 (23-300) U/L Urine RBC 0-1/hpf (0-5/HPF) Urine WBC 5-10/hpf H (0-5/HPF) Ur Squamous Epith Cells 5-10 /hpf H (0-5/HPF) Amorphous Sediment 1+ Urine Bacteria Moderate (10-30) H (None) Ur Culture Indicated? Specimen cultured Point of Care Testing Test Results Negative Urine Dip Bedside Urine Glucose Negative Bedside Urine Bilirubin - Negative Bedside Urine Ketone - Negative Urine Specific [place] 1.010 Bedside Urine Occult Blood - Negative Bedside Urine pH 6.5 Bedside Urine Protein - Negative Bedside Urine Urobilinogen +/- 1mg Bedside Urine Nitrite - Negative Bedside Urine Leukocytes +/- 15 Esterase MDM Narrative Medical decision making narrative: Patient is a 42-year-old female presenting for evaluation of nausea and vomiting history of kidney stones. Physical exam shows tenderness to patient's back, no tenderness over suprapubic area. She reports sensation of chills and burning with urination, but denies fever. Multiple etiologies for patient's symptoms considered including, but not limited to: Kidney stones, pyelonephritis, ectopic , viral gastroenteritis, cholecystitis Prior Charts reviewed: ER visit January 09, 2023 Labs reviewed and interpreted by myself: UA shows trace leukocytes, urine test was negative, CBC, CMP and lipase did not show any abnormality Imaging reviewed: Renal ultrasound shows no hydronephrosis and multiple echogenic foci in both kidneys which could represent small stones. Consultations: Reviewed case with Dr. Bello. Discussed that clinical condition is likely due to pyelonephritis. Given 1g rocephin and 1L IV fluids in addition to 4mg zofran IV. After treatment, patient reports she is feeling much better. She has not had any vomiting this afternoon since being treated here. Patient's symptoms improved over duration of stay with above-stated therapies. Findings and discharge diagnosis discussed with patient/family followed by verbalization of understanding Return precautions discussed with patient/family whom verbalize understanding of diagnosis and plan <Eloisa Bello, DO - Last Filed: 04/25/23 18:09> Lab Data Labs: Lab Results 04/24/23 04/24/23 04/24/23 Range/Units 13:04 14:20 14:20 WBC 5.7 (4.5-11.0) X10^3/uL RBC 4.01 (4.0-5.2) X10^6/uL Hgb 12.3 (12.0-16.0) g/dL Hct 36.4 (36-46) % MCV 90.8 (80-100) fL MCH 30.6 (26-34) PG MCHC 33.7 (30-36) % RDW 13.5 (11.6-14.8) % Plt Count 280 (150-400) X10^3/uL Neut % (Auto) 51.9 (50-75) % Lymph % (Auto) 39.5 (25-40) % [place] % (Auto) 6.8 (3-14) % Eos % (Auto) 1.2 L (2-4) % Baso % (Auto) 0.6 (0-2) % Neut # (Auto) 3000 (1291-9837) /uL Lymph # (Auto) 2200 (2282-7706) /uL [place] # (Auto) 400 (0-900) /uL Eos # (Auto) 100 (0-450) /uL Baso # (Auto) 0 (0-100) /uL Sodium 137 (137-145) mmol/L Potassium 3.6 (3.4-5.1) mmol/L Chloride 106 (98-107) mmol/L Carbon Dioxide 28 (22-32) mmol/L BUN 10 (7-17) mg/dL Creatinine 0.68 (0.52-1.04) mg/dL Estimated GFR > 60 (>60) mL/min BUN/Creatinine Ratio 14.7 (6-22) Glucose 97 (70-100) mg/dL Calcium 9.2 (8.4-10.2) mg/dL Total Bilirubin 0.6 (0.2-1.3) mg/dL AST 32 (14-36) IU/L ALT 21 (<35) IU/L Alkaline Phosphatase 75 (38-126) U/L Total Protein 6.6 (6.3-8.2) g/dL Albumin 3.8 (3.5-5.0) g/dL Globulin 2.8 (1.7-4.1) g/dL Albumin/Globulin Ratio 1.4 (1.0-2.8) Lipase 178 (23-300) U/L Urine RBC 0-1/hpf (0-5/HPF) Urine WBC 5-10/hpf H (0-5/HPF) Ur Squamous Epith Cells 5-10 /hpf H (0-5/HPF) Amorphous Sediment 1+ Urine Bacteria Moderate (10-30) H (None) Ur Culture Indicated? Specimen cultured Point of Care Testing Test Results Negative Urine Dip Bedside Urine Glucose Negative Bedside Urine Bilirubin - Negative Bedside Urine Ketone - Negative Urine Specific [place] 1.010 Bedside Urine Occult Blood - Negative Bedside Urine pH 6.5 Bedside Urine Protein - Negative Bedside Urine Urobilinogen +/- 1mg Bedside Urine Nitrite - Negative Bedside Urine Leukocytes +/- 15 Esterase Discharge Plan Departure Patient Disposition: Home Clinical Impression: Pyelonephritis Instructions: DI for Kidney Infection Activity Restrictions/Additional Instructions: You were diagnosed with kidney infection today. I recommend continued treatment at home with Bactrim antibiotic twice a day for the next 7 days. Please drink plenty of water and continue to monitor your symptoms. If you should develop increase in nausea and vomiting, or back pain then please return for further evaluation at the emergency department. Otherwise, I recommend you continue follow up with urologist for evaluation of presence of kidney stones. Your ultrasound did not show any fluid on your kidneys. Ultrasound also did note that there was bladder wall thickening which I advised her to follow up about however we did discuss that this is likely due to voiding just prior to the ultrasound. Prescriptions: New sulfamethoxazole-trimethoprim [Bactrim DS] 800-160 mg tablet 1 tab PO Q12H Qty: 14 0RF No Action celecoxib 200 mg capsule 200 mg PO DAILY tizanidine 2 mg tablet 4 mg PO BEDTIME PRN (Reason: Migraine Headache) diclofenac sodium 100 mg tablet extended release 24 hr 100 mg PO DAILY PRN (Reason: Migraine Headache) Patient Comments: TAKE 1 TABLET BY MOUTH ONCE DAILY NEEDED FOR SEVERE HEADACHE; DO NOT TAKE WITH CELEBREX rizatriptan 10 mg tablet 10 mg PO TID PRN (Reason: Migraine Headache) Rx Instructions: can take up to 30mg in 24 hour period topiramate 25 mg tablet 25 mg PO BID Patient Comments: TAKE 1 TABLET BY MOUTH TWICE DAILY; DO NOT TAKE IF OR ATTEMPTING TO BECOME gabapentin 300 mg capsule 300 mg PO TID PRN (Reason: Pain (Scale Score 4-6)) duloxetine 20 mg capsule,delayed release(DR/EC) 40 mg PO DAILY hydrocodone-acetaminophen 5-325 mg tablet 1 tab PO Q8H PRN (Reason: pain) Qty: 10 0RF Referrals: ProviderKike [Primary Care Provider] - Stand Alone Forms: Patient Portal/API <Eloisa Bello DO - Last Filed: 04/25/23 18:09> Cosign ED Attending Enochature Attestation: I was immediately available in the department for consultation. Documentation has been reviewed. Case was discussed agree with current plan.
--- NOTE | 2023-04-24 13:53 | DI.US.S_ITS ---
PROCEDURE: US RENAL COMPLETE INDICATIONS: CVA TENDERNESS, HISTORY OF STONES TECHNIQUE: Real-time scanning was performed of the kidneys and bladder, with image documentation. COMPARISON: [facility], CT, CT ABDOMEN PELVIS W CON, 01/09/2023, 12:27. FINDINGS: Kidneys: Kidneys are normal in size. Right kidney measures 9.9 cm long; left kidney measures 11.5 cm long. Right renal cortical thickness is 1.5 cm; left renal cortical thickness is 2.1 cm. Overall echogenicity is within normal limits. Multiple bilateral echogenic foci in the cortex. A larger focus on the right measures 0.6 cm and on the left 0.5 cm. Suspect right renal calculus measuring at 0.6 cm. Suspect left renal calculus measuring 0.5 cm No hydronephrosis or nephrolithiasis. No suspicious solid mass lesions. Bladder: Pre-void bladder volume is 22 mL. Bladder wall measures 1 cm in thickness and appears thickening accounting for decompressed status. Patient urinated prior to exam. IMPRESSION: 1. No hydronephrosis demonstrated. 2. Multiple echogenic foci in both kidneys. These could represent small stones. Consider further evaluation with CT KUB. 3. Concern for bladder wall thickening. Dictated by: Robert Dailey M.D. on 04/24/2023 at 16:01 Approved by: Robert Dailey M.D. on 04/24/2023 at 16:04
[2023-04-24] MEDS: KETOROLAC 30 MG/ML VIAL 15 MG IV (14:31)
[2023-04-24 14:32] LABS: Add Manual Diff / Slide Review NO; Basophils Absolute Auto 0 /uL (0-100); Basophils Percent Auto 0.6 % (0-2); Eosinophils Absolute Auto 100 /uL (0-450); Eosinophils Percent Auto 1.2 % (2-4); Hematocrit 36.4 % (36-46); Hemoglobin 12.3 g/dL (12.0-16.0); Lymphocytes Absolute Auto 2200 /uL (1100-4500); Lymphocytes Percent Auto 39.5 % (25-40); Mean Corpuscular HGB Conc 33.7 % (30-36); Mean Corpuscular Hemoglobin 30.6 PG (26-34); Mean Corpuscular Volume 90.8 fL (80-100); Monocytes Absolute Auto 400 /uL (0-900); Monocytes Percent Auto 6.8 % (3-14); Neutrophils Absolute Auto 3000 /uL (1500-7000); Neutrophils Percent Auto 51.9 % (50-75); Platelet Count 280 X10^3/uL (150-400); Red Blood Cell Count 4.01 X10^6/uL (4.0-5.2); Red Cell Distribution Width 13.5 % (11.6-14.8); White Blood Cell Count 5.7 X10^3/uL (4.5-11.0)
[2023-04-24] MEDS: SODIUM CHLORIDE 0.9% 1,000 ML 1000 ML IV (14:32)
[2023-04-24] MEDS: cefTRIAXone 1,000 MG in SODIUM CHLORIDE 0.9% 100 ML 200 MG IV (14:57)
[2023-04-24] MEDS: ONDANSETRON 4 MG/2 ML INJ IV (14:58)
[2023-04-24 15:02] LABS: Alanine Aminotransferase 21 IU/L (<35); Albumin 3.8 g/dL (3.5-5.0); Albumin Globulin Ratio 1.4 (1.0-2.8); Alkaline Phosphatase 75 U/L (38-126); Aspartate Aminotransferase 32 IU/L (14-36); BUN Creatinine Ratio 14.7 (6-22); Bilirubin Total 0.6 mg/dL (0.2-1.3); Blood Urea Nitrogen 10 mg/dL (7-17); Calcium 9.2 mg/dL (8.4-10.2); Carbon Dioxide 28 mmol/L (22-32); Chloride 106 mmol/L (98-107); Estimated Glomerular Filt Rate > 60 mL/min (>60); Globulin 2.8 g/dL (1.7-4.1); Glucose 97 mg/dL (70-100); HEMOLYSIS < 15 (0-50); Lipase 178 U/L (23-300); Potassium 3.6 mmol/L (3.4-5.1); Sodium 137 mmol/L (137-145); Total Protein 6.6 g/dL (6.3-8.2)
[2023-04-24 16:30] VITALS: BP 115/77; PULSE 62; RESP 20; TEMP 36.4; O2SAT 98
== END 2023-04-24 16:25 | disposition home or self-care (01) ==
PROVIDERS: Emergency Provider Physician Assistant
DX: N12 Tubulo-interstitial nephritis, not specified as acute or chronic (principal)
CPT/HCPCS: 36415; 76770; 80053; 81003; 81015; 81025; 83690; 85025; 87077; 87086; 87186; 96365; 96375; 99284; J0696; J1885; J2405

== ENCOUNTER → 2023-07-05 07:39 | Outpatient (CLI) | payer OTHER, SELFPAY ==
[2023-01-09 17:09] VITALS: BMI 22.8
--- NOTE | 2023-07-06 08:26 | DI.NM.S_ITS ---
DATE OF SERVICE: 07/05/2023 PROCEDURE: Exercise stress test. INDICATIONS: Dizziness. CARDIAC STRESS: The patient underwent exercise stress test under the supervision of an attending staff. She walked on Cricket protocol for 12 minutes, achieved maximum heart rate of 166, which are 93% of target heart rate. Normal blood pressure response. Resting blood pressure 102/78. Peak blood pressure 140/78. The patient achieved 12.8 METS of workload, APAR[place] -36%. Baseline rhythm was sinus. During stress, no convincing ischemic changes seen. No significant arrhythmias seen. No chest pain. The patient had some dyspnea at peak exercise. CONCLUSION: Exercise stress test is negative for inducible ischemia. Good exercise tolerance. Normal hemodynamic response. Functional aerobic impairment -36%. Achieved 12.8 metabolic equivalents of workload. No ischemic electrocardiographic changes or significant arrhythmias. Overall, low-risk exercise stress test. Carine Clements - SEGUNDO/elsa/KRISTI doc#: [id number]/job#: [id number] dd: 07/05/2023 17:46:00 dt: 07/05/2023 22:09:00 DICTATING /COPIES TO: Miguelangel Silva MD COPIES MNE: MAXIMUS;
== END ==
PROVIDERS: Referring Provider Internal Medicine Cardiovascular Disease; Visit Provider Internal Medicine Cardiovascular Disease
DX: R42 Dizziness and giddiness (principal); R55 Syncope and collapse
CPT/HCPCS: 93017